=== PATIENT | male | born 1970 | race Caucasian/White ===

== ENCOUNTER → 2023-05-16 07:10 | Outpatient (REF) | payer MEDICARE, OTHER, SELFPAY ==
[2023-05-16 08:58] LABS: Hematocrit 49.7 % (39.0-52.0); Hemoglobin 17.2 g/dL (13.0-18.0); Mean Corp Hgb Conc. 34.6 g/dL (33.0-37.0); Mean Corpuscular Hgb 31.7 pg (27.0-31.0); Mean Corpuscular Volume 91.7 fL (80.0-94.0); Mean Platelet Volume 8.9 fL (7.4-10.4); Platelet Count 158 10^3/uL (130-400); Red Blood Cell Count 5.42 10^6/uL (4.70-6.10); Red Cell Dist. Width 12.5 % (11.5-14.5); White Blood Cell Count 8.3 10^3/uL (4.8-10.8)
[2023-05-16 09:11] LABS: Blood Urea Nitrogen 20 mg/dl (9-20); Calcium 9.2 mg/dl (8.4-10.2); Carbon Dioxide 30 mmol/L (22-30); Chloride 100 mmol/L (98-107); Glucose 96 mg/dl (70-99); Potassium 4.2 mmol/L (3.5-5.1); Sodium 140 mmol/L (135-145); eGFR > 60.00
[2023-05-16 09:18] LABS: NT-proBNP < 20.0 pg/ml
== END ==
LOC: SDSPAT 07:10
PROVIDERS: ATTENDING PHYSICIAN Specialist; FAMILY PHYSICIAN Family Medicine
DX: Z01.818 Encounter for other preprocedural examination (principal)
CPT/HCPCS: 36415; 80048; 83880; 85027; 87070; 93005

== ENCOUNTER 2023-05-19 08:49 | Emergency (ER) | payer MEDICARE, OTHER, SELFPAY ==
[2023-05-19 08:53] VITALS: BP 151/86
--- NOTE | 2023-05-19 09:19 | ED.GENMED ---
History of Present Illness
<Annie Barron PA-C - Last Filed: 05/19/23 13:29>
General
Chief Complaint: DVT/Possible Blood Clot
Source: patient
Exam Limitations: none
Time Seen by Provider: 05/19/23 08:58
Nursing documentation reviewed up to this point in time: agreed with
Travel History
Have you had any contact with someone who has COVID-19?: No
Do you have any symptoms of coronavirus? Fever > 100 degrees, chills, cough, shortness of breath, sore throat, loss of taste or smell, muscle aches, or headache?: No
History of Present Illness
History of Present Illness:
Patient is a 52 year old male presenting for evaluation of swelling and pain of right lower extremity. Symptoms started approximately 2 weeks ago and have been gradually worsening. He endorses swelling, pain, and redness in his right lower extremity
from the ankle into the groin. He also endorses increasing dyspnea on exertion over the past few weeks. He denies any chest pain or numbness of lower extremity. He denies any abdominal symptoms. He denies similar symptoms in left lower extremity.
Patient was seen by his PCP this morning to have stitches removed on his back when he mentioned the swelling in his right lower leg. He was referred her for US to r/o DVT. Patient had a procedure done on 05/08/23 to have the battery pack of his spinal
cord stimulator removed. Symptoms were present prior to this procedure.
He does have a history of RSD in b/l lower legs and right arm and experiences some degree of pain at baseline but this is more severe. He has a Dilaudid pump.
Patient had a stroke at age 20.
No personal or family history of known clotting disorders.
Past History
<Annie Barron PA-C - Last Filed: 05/19/23 13:29>
Past History
ED Past Medical History: Psychiatric (Anxiety, depression) and Other (RSD)
ED Past Surgical History: Appendectomy, Cholecystectomy and Other
Social History
Tobacco: Non-smoker
Alcohol: None
Drug: None
Personal:
Living: with family
Employment: Employed
Family History
Family History: Other (Noncontributory)
Phy Exam
<Annie Barron PA-C - Last Filed: 05/19/23 13:29>
Physical Exam
Physical Exam:
General: Well appearing and non-toxic, vital signs reviewed - patient afebrile
HEENT: Atraumatic, normocephalic; protecting airway
Neck: appears supple, no JVD
CV: Regular rate and rhythm, heart sounds normal, no evidence of cyanosis
Resp: No evidence of respiratory distress, lungs clear, no accessory muscle use
Abd: Non-distended
Extremities: Non-pitting edema of right lower extremity with erythema of calf and medial thigh with some red streaking on medial aspect of right leg, tenderness to palpation of right lower leg
Neuro: alert and oriented, speech normal, no focal motor or neurological deficits
Psych: Normal affect
Skin: Intact, brawny discoloration of b/l annkles
Course
<Annie Barron PA-C - Last Filed: 05/19/23 13:29>
Orders/Labs/Results
Orders:
Orders
05/19/23 09:32
US Periph Venous LOWER Ext RT Urgent
Comment:
Reason For Exam: atraumatic pain and swelling of RLE, r/o dvt
Vital Signs
Initial and Last Documented VS:
Initial Vital Signs
Temp Pulse Resp BP Pulse Ox
98.3 F 86 16 151/86 98
05/19/23 08:53 05/19/23 08:53 05/19/23 08:53 05/19/23 08:53 05/19/23 08:53
Last Documented Vital Signs
Temp Pulse Resp BP Pulse Ox
98.3 F 86 16 151/86 98
05/19/23 08:53 05/19/23 08:53 05/19/23 08:53 05/19/23 08:53 05/19/23 08:53
<Humberto Torres DO - Last Filed: 05/19/23 12:13>
Orders/Labs/Results
Orders:
Orders
05/19/23 09:32
US Periph Venous LOWER Ext RT Urgent
Comment:
Reason For Exam: atraumatic pain and swelling of RLE, r/o dvt
Vital Signs
Initial and Last Documented VS:
Initial Vital Signs
Temp Pulse Resp BP Pulse Ox
98.3 F 86 16 151/86 98
05/19/23 08:53 05/19/23 08:53 05/19/23 08:53 05/19/23 08:53 05/19/23 08:53
Last Documented Vital Signs
Temp Pulse Resp BP Pulse Ox
98.3 F 86 16 151/86 98
05/19/23 08:53 05/19/23 08:53 05/19/23 08:53 05/19/23 08:53 05/19/23 08:53
<Annie Barron PA-C - Last Filed: 05/19/23 13:29>
MDM/Problems Addressed
Differential Diagnosis Includes:
DVT, cellulitis, venous stasis, CHF, nephrotic syndrome
MDM/Problems Addressed:
Patient is 52 y.o male presenting for right lower extremity swelling and pain worsening over the past few weeks. Sent to ER by primary care to rule out a DVT. No chest pain. Some very mild shortness of breath. He denies any recent trauma to leg.
No fever or chills. He has no history of DVT but did have a stroke when he was 20. Patient's vital signs are stable on arrival. He is not tachycardic or hypoxic. He is afebrile. he does have some diffuse swelling of right lower extremity with
erythema of right calf and some streaking moving up right medial thigh. He is tender palpation of right lower leg. There is brawny discoloration of bilateral ankles suspicious for venous stasis process. Will get ultrasound of right lower leg to
rule out blood clot. Will reassess.
Ultrasound of right lower extremity is negative for evidence of DVT. Given swelling and redness noted on exam�will treat for probable cellulitis and underlying venous stasis. Patient is stable for discharge with return precautions and primary care
follow-up in 48 hours to ensure resolving. Will send course of Keflex for suspected cellulitis. Lengthy discussion with patient regarding return precautions. Patient is comfortable this plan. All questions answered.
Chronic conditions affecting care:
RSD, hx CVA, hypothyroid
Acute Exacerbation and/or Progression of Chronic Illness:
Cellulitis, venous stasis
<Annie Barron PA-C - Last Filed: 05/19/23 13:29>
*Radiology
Radiology exam reviewed: radiology read reviewed
*Pulse Oximetry
Patient hypoxic: no
*Locksmith Interpretation
Rate: Locksmith- N/A
*Critical Care Note
Total Time (30-74mins, 75-104mins- exclusive of procedures): Not Applicable
ED Attending Note
<Annie Barron PA-C - Last Filed: 05/19/23 13:29>
-
Portions of this chart may have been created with voice recognition software.� Occasional wrong word or��sound alike� substitutions may have occurred due to the inherent limitations of voice recognition software.
<Humberto Torres DO - Last Filed: 05/19/23 12:13>
ED Attending Note
Patient seen and examined by attending physician: Yes
I performed the substantive portion of visit, reviewed & personally made and approve the management plan that is documented in note by myself or MARGRET.: Yes
ED Attending Note:
Patient is a 52-year-old male Who presents to the emergency department from his family physician's office for concern of a possible DVT in his right leg. Patient has noticed pain and swelling. Patient denies history of previous DVT. Patient has
history of spinal cord stimulator. Patient denies fever or chills. On physical exam the patient's right lower extremity is diffusely edematous with an erythematous streak going distally proximally. Patient's right lower leg is bigger than his
left lower leg. There is brawny induration bilaterally. Patient's ultrasound is negative. Patient will be treated for cellulitis and probable venous stasis. Patient will be discharged.
Discharge Plan
Departure
Patient Disposition: Home (Routine Discharge)
Date of Disposition: 05/19/23
Time of Disposition: 10:42
Patient with high blood pressure during this ER visit?: Yes
Condition: Good
Covid-19: Not Applicable
Discharge Problem:
Cellulitis
Instructions: Cellulitis (Skin Infection), Adult (DC), BLOOD PRESSURE
Prescriptions:
New
cephalexin 500 mg capsule
500 mg PO TID 7 Days Qty: 21 0RF
No Action
levothyroxine 50 mcg tablet
50 mcg PO DAILY@0700
buspirone 10 mg tablet
10 mg PO BID
nicotine 21 mg/24 hr patch 24 hour
21 mg transdermal DAILY
trazodone 300 mg tablet
300 mg PO HS
testosterone cypionate 200 mg/mL oil
200 mg IM Q2W
paroxetine HCl 40 mg tablet
40 mg PO DAILY
oxycodone 5 mg tablet
5 mg PO Q8H
Dilaudid
2.1 ml SC Q24H
Rx Instructions:
dilaudid implantable pump: 2.1ml every 24 hr
Referrals:
Humberto Randolph DO [Family Provider] - Follow up in 2-3 days
Activity Restrictions/Additional Instructions:
-Return to the emergency department with any high fevers, chest pain, shortness of breath, intractable vomiting, worsening in redness or swelling, purulent drainage, severe pain in right leg, worsening in current symptoms, or any other concerns
-Your prescription has been sent to your pharmacy.
-Recommend elevating leg as often as possible.
-Follow-up with PCP for further evaluation/management. You should follow-up with PCP in 48 hours to ensure symptoms are improving.
Interventions
Interventions:
*Risk Screen - Suicide Last Done: 05/19/23 09:23
*General Assessment Last Done: 05/19/23 09:23
*Neglect/Abuse Screening Last Done: 05/19/23 09:23
*ED COVID-19 Vaccine History Last Done: 05/19/23 08:53
*Nursing Disposition Last Done: 05/19/23 10:55
ED- Cardiac Assessment Last Done: 05/19/23 09:23
ED- Pulmonary Assessment Last Done: 05/19/23 09:23
ED-Peripheral Vascular Assessment Last Done: 05/19/23 09:23
ED-Skin Assessment Last Done: 05/19/23 09:23
Discharge Date and Time
Discharge Date/Time: 05/19/23 10:56
[2023-05-19 09:22] VITALS: BMI 41.2
== END 2023-05-19 10:56 | disposition home or self-care (01) ==
LOC: EMR 08:49
PROVIDERS: EMERGENCY PHYSICIAN Emergency Medicine; FAMILY PHYSICIAN Family Medicine
DX: L03.115 Cellulitis of right lower limb (principal); G90.523 Complex regional pain syndrome I of lower limb, bilateral; E03.9 Hypothyroidism, unspecified; R03.0 Elevated blood-pressure reading, without diagnosis of hypertension; Z86.73 Personal history of transient ischemic attack (TIA), and cerebral infarction without residual deficits
CPT/HCPCS: 99284; 93971

== ENCOUNTER 2023-05-26 17:38 | Inpatient (IN) | payer MEDICARE, OTHER, SELFPAY ==
[2023-05-26 11:18] VITALS: BP 157/96
[2023-05-26 11:42] LABS: % Eosinophils 1.9 % (0-6); % Immature Granulocytes 0.7 % (0-0.5); % Lymphocytes 13.2 % (20.5-51.1); % Monocytes 9.5 % (1.7-9.3); % Neutrophils 73.7 % (42.2-75.2); Absolute Basophils 0.1 10^3/uL (0-0.2); Absolute Eosinophils 0.1 10^3/uL (0-0.7); Absolute Immature Granulocytes 0.1 10^3/uL (0-0.05); Absolute Lymphocytes 0.9 10^3/uL (1.2-3.4); Absolute Monocytes 0.7 10^3/uL (0.1-0.6); Hematocrit 49.1 % (39.0-52.0); Hemoglobin 17.6 g/dL (13.0-18.0); Mean Corp Hgb Conc. 35.8 g/dL (33.0-37.0); Mean Corpuscular Hgb 32.2 pg (27.0-31.0); Mean Corpuscular Volume 89.9 fL (80.0-94.0); Mean Platelet Volume 8.7 fL (7.4-10.4); Nucleated Red Blood Cells % 0 % (-); Platelet Count 152 10^3/uL (130-400); Red Blood Cell Count 5.46 10^6/uL (4.70-6.10); Red Cell Dist. Width 12.7 % (11.5-14.5); White Blood Cell Count 6.8 10^3/uL (4.8-10.8)
[2023-05-26 12:01] LABS: ALT (SGPT) 28 U/L (0-50); AST (SGOT) 35 U/L (17-59); Albumin 4.2 g/dl (3.5-5.0); Alkaline Phosphatase 66 U/L (38-126); Blood Urea Nitrogen 11 mg/dl (9-20); Calcium 9.3 mg/dl (8.4-10.2); Carbon Dioxide 32 mmol/L (22-30); Chloride 99 mmol/L (98-107); Glucose 107 mg/dl (70-99); Potassium 4.1 mmol/L (3.5-5.1); Sodium 137 mmol/L (135-145); Total Bilirubin 0.5 mg/dl (0.2-1.3); Total Protein 6.7 g/dl (6.3-8.2); eGFR > 60.00
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
[2023-05-26 15:21] VITALS: BP 150/91
[2023-05-26] MEDS: VANCOCIN 540 MG IV (16:49)
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
[2023-05-26 17:00] VITALS: BP 179/73
--- NOTE | 2023-05-26 17:02 | W.PN.UPDATE ---
Update Note
Progress Note Update
Rash reported to Right flank left arm during Iv VANCO administration
-Stop IV vancomycin
-IV Benadryl 25 mg now
[2023-05-26] MEDS: KLONOPIN 1 MG PO (17:05)
[2023-05-26] MEDS: NICODERM TRANSDERMAL 14 MG TRANSDERM (17:05)
[2023-05-26] MEDS: BENADRYL 25 MG IV (17:05)
[2023-05-26 17:56] VITALS: BP 129/78; BMI 39.4
[2023-05-26] MEDS: ANCEF 5 IV (18:16)
--- NOTE | 2023-05-26 18:16 | PTCARENOTE ---
pt arrived to unit at 1750 via stretcher form ED> pt ambulated from hallway to bed with standby assist and single point cane. Pt AAOx3 but drowsy, falling asleep mid conversation. Assessment completed by this nurse. VSS
[2023-05-26] MEDS: LOVENOX 40 MG SC (19:52)
[2023-05-26] MEDS: BUSPAR 10 MG PO (19:53)
[2023-05-26] MEDS: PUMP 10 EACH SC (20:21)
[2023-05-26] MEDS: DESYREL 300 MG PO (21:00)
[2023-05-26] MEDS: ROXICODONE 5 MG PO (21:00)
[2023-05-26 23:52] VITALS: BP 157/61
[2023-05-27] MEDS: ANCEF 5 IV ×2 (01:00→09:50)
[2023-05-27] MEDS: SYNTHROID 50 MCG PO (05:44)
[2023-05-27 06:32] LABS: Blood Urea Nitrogen 15 mg/dl (9-20); Calcium 8.7 mg/dl (8.4-10.2); Carbon Dioxide 29 mmol/L (22-30); Chloride 100 mmol/L (98-107); Estimated Creatinine Clearance > 125 ml/min; Glucose 91 mg/dl (70-99); Potassium 3.8 mmol/L (3.5-5.1); Sodium 136 mmol/L (135-145); eGFR > 60.00
[2023-05-27 06:48] LABS: % Basophils 0.7 % (0-2); % Eosinophils 1.8 % (0-6); % Immature Granulocytes 0.7 % (0-0.5); % Lymphocytes 17.4 % (20.5-51.1); % Monocytes 9.7 % (1.7-9.3); % Neutrophils 69.7 % (42.2-75.2); Absolute Basophils 0.1 10^3/uL (0-0.2); Absolute Eosinophils 0.2 10^3/uL (0-0.7); Absolute Immature Granulocytes 0.1 10^3/uL (0-0.05); Absolute Lymphocytes 1.8 10^3/uL (1.2-3.4); Absolute Neutrophils 7.1 10^3/uL (1.4-6.5); Hemoglobin 18.2 g/dL (13.0-18.0); Mean Corp Hgb Conc. 35.7 g/dL (33.0-37.0); Mean Corpuscular Hgb 32.3 pg (27.0-31.0); Mean Corpuscular Volume 90.4 fL (80.0-94.0); Mean Platelet Volume 8.8 fL (7.4-10.4); Nucleated Red Blood Cells % 0 % (-); Platelet Count 151 10^3/uL (130-400); Red Blood Cell Count 5.64 10^6/uL (4.70-6.10); Red Cell Dist. Width 12.6 % (11.5-14.5); White Blood Cell Count 10.2 10^3/uL (4.8-10.8)
[2023-05-27 07:37] VITALS: BP 169/83
[2023-05-27] MEDS: VITAMIN D3 (cholecalciferol) 125 MCG PO (09:10)
[2023-05-27] MEDS: BUSPAR 10 MG PO ×2 (09:11→19:44)
[2023-05-27] MEDS: NICODERM TRANSDERMAL 14 MG TRANSDERM (09:11)
[2023-05-27] MEDS: PAXIL 40 MG PO (09:11)
[2023-05-27] MEDS: ROXICODONE 5 MG PO ×2 (09:23→15:39)
--- NOTE | 2023-05-27 10:29 | W.PN.HOSP.TC ---
Today's Communication/Plan
-
see A/P
Assessment / Plan
Assessment / Plan
52-year-old male, past medical history of hypothyroidism, anxiety, PTSD, Reflex Sympathetic Dystrophy, chronic pain syndrome with Dilaudid pump with chronic left hand contracture; p/w increasing right leg pain and swelling.� He was diagnosed with
right lower extremity cellulitis outpatient and had been on Keflex and Bactrim without significant improvement.
A/P:
# Right lower extremity pain/ swelling, admitted for cellulitis work up
Clinically does not appear grossly cellulitic although CT LE suggest Moderate diffuse cellulitis throughout the right lower leg.
WBC 6.8, afebrile
Recent ultrasound 6 days [facility] negative for DVT
s/p Keflex 1 week outpt followed by Bactrim DS twice daily x 4 days outpt
Cont Ancef, IV Vanc discontinued due to rash
Consult ID
# Recent nicotine cessation
Continue patient 14 mg nicotine transdermal patch
Prior 2 to 3 pack/day quit 37 days ago
# RSD bilateral lower extremities since 2005
# Chronic pain with chronic opiate dependence
# Medical marijuana use
Cont�Dilaudid pump 10 mg per 24-hour/baclofen 560 mg
Cont oxycodone 5 mg every 6 hours as needed severe pain
# Anxiety
# PTSD
Continue BuSpar 10 mg twice daily, Paxil 40 mg daily
Continue Klonopin 1 mg daily as needed anxiety
# Hypothyroidism
Continue levothyroxine 50 mcg daily
# Insomnia
Trazodone 300 mg at bedtime
# Obesity due to excess calorie consumption
BMI 42
Weight loss recommended, healthy heart diet
DVT prophylaxis: Subcu Lovenox
Full code
Anticipated Discharge: Within 24 hours
Subjective/Interval History
-
Date of Service: May 27, 2023
Objective Data
-
Labs:
Laboratory Results
05/27/23
05:47
WBC 10.2
Hgb 18.2 H
Hct 51.0
Plt Count 151
Sodium 136
Potassium 3.8
Chloride 100
Carbon Dioxide 29
BUN 15
Creatinine 0.8
Glucose 91
Calcium 8.7
Vital Signs:
Vital Signs
Temp Pulse Resp BP Pulse Ox
36.8 C 69 18 169/83 98
05/27/23 07:37 05/27/23 07:37 05/27/23 07:37 05/27/23 07:37 05/27/23 07:37
I&O
05/26/23 05/27/23 05/28/23
06:59 06:59 06:59
Intake Total 480 / 480
Balance 480 / 480
Review of Systems
-
All other systems: Reviewed and negative
Musculoskeletal: Reports Muscle Pain (RLE pain has improved)
Physical Exam
-
General: Well Developed, Well Nourished, No Apparent Distress, Comfortable and Conversant; Negative Respiratory Distress
HEENT: Normocephalic, Atraumatic, Nose Appears Normal and Ears Appear Normal; Negative Oxygen
Respiratory: Clear to Auscultation and Non Labored Respirations; Negative Accessory Resp Muscle Use
Cardiac: Regular Rhythm and S1/S2
GI: Soft, Nontender, Nondistended and Normal Bowel Sounds
Musculoskeletal: Edema, Right Lower Extrem and Edema, Left Lower Extrem
Skin: Warm and Dry
Neuro: Awake, Alert, Oriented, AO x 3 and Nonfocal/Grossly Intact
Psych: Calm and Intact Judgement/Insight
Data Reviewed
-
CT Scan: Report Reviewed by me
Labs: Labs Reviewed by me
[2023-05-27] MEDS: KLONOPIN 1 MG PO (10:37)
[2023-05-27 12:23] VITALS: BP 166/87; PULSE 83; O2SAT 98
[2023-05-27 12:35] VITALS: BP 166/87; PULSE 83; O2SAT 98
--- NOTE | 2023-05-27 12:47 | PTOTSP ---
PATIENT ABLE TO MOBILIZE INDEPENDENTLY ON LEVEL SURFACES WITH CANE. PATIENT WITH PAIN BILATERAL LES RATED 2/10. PATIENT APPEARS TO BE FUNCTIONING AT ITS BASELINE. PATIENT REQUIRING NO FURTHER ACUTE CARE SKILLED P.T. AT THIS TIME.
[2023-05-27 15:00] VITALS: BP 148/117
[2023-05-27] MEDS: ANCEF 10 IV ×2 (15:56→21:08)
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
[2023-05-27] MEDS: KLONOPIN 0.25 MG PO ×2 (17:10→21:10)
[2023-05-27] MEDS: LOVENOX 40 MG SC (17:11)
[2023-05-27 17:29] VITALS: BP 162/85
[2023-05-27] MEDS: PUMP 10 EACH SC (19:14)
[2023-05-27] MEDS: DESYREL 300 MG PO (21:09)
[2023-05-27 23:09] VITALS: BP 118/62
[2023-05-28] MEDS: ANCEF 10 IV ×2 (04:00→10:00)
--- NOTE | 2023-05-28 04:10 | DOWNTIME ---
There was a [employer] Technical Support Specialist Downtime on 05/28/2023 from 0111 to 05/28/2023 at 0405. Downtime documentation of patient's care, including medication administrations, has been reconciled in the electronic record per guidelines. Refer to the
patient's paper chart under the miscellaneous tab to see printed paper medication records and downtime forms.
[2023-05-28] MEDS: SYNTHROID 50 MCG PO (05:56)
[2023-05-28] MEDS: PAXIL 40 MG PO (07:56)
[2023-05-28] MEDS: NICODERM TRANSDERMAL 14 MG TRANSDERM (07:57)
[2023-05-28] MEDS: VITAMIN D3 (cholecalciferol) 125 MCG PO (07:58)
[2023-05-28] MEDS: BUSPAR 10 MG PO (07:58)
[2023-05-28] MEDS: ROXICODONE 5 MG PO (08:07)
[2023-05-28] MEDS: KLONOPIN 0.25 MG PO (08:47)
[2023-05-28 09:11] VITALS: BP 158/82
[2023-05-28] MEDS: FLUSH (NSS) 2 FLUSH IV (10:01)
--- NOTE | 2023-05-28 10:29 | W.PN.HOSP.TC ---
Addendum entered and electronically signed by Hanny Montenegro MD 05/28/23 12:42:
Total DC time 35 minutes
Original Note:
Today's Communication/Plan
-
DC home today
Assessment / Plan
Assessment / Plan
52-year-old male, past medical history of hypothyroidism, anxiety, PTSD, Reflex Sympathetic Dystrophy, chronic pain syndrome with Dilaudid pump with chronic left hand contracture; p/w increasing right leg pain and swelling.� He was diagnosed with
right lower extremity cellulitis outpatient and had been on Keflex and Bactrim without significant improvement.
A/P:
# Right lower extremity pain/ swelling, admitted for cellulitis work up
Clinically does not appear grossly cellulitic although CT LE suggest Moderate diffuse cellulitis throughout the right lower leg.
WBC 6.8, afebrile
Recent ultrasound 6 days [employer] negative for DVT
s/p Keflex 1 week outpt followed by Bactrim DS twice daily x 4 days outpt
Ancef -> PO keflex 1000 mg PO QID for 5 more days
Appreciate ID input
# Recent nicotine cessation
Prior 2 to 3 pack/day quit 37 days ago
Continue nicotine patch 14 mg, will send refill per pt request
# RSD bilateral lower extremities since 2005
# Chronic pain with chronic opiate dependence
# Medical marijuana use
Cont�Dilaudid pump 10 mg per 24-hour/baclofen 560 mg
Cont oxycodone 5 mg every 6 hours as needed severe pain
# Anxiety
# PTSD
Continue BuSpar 10 mg twice daily, Paxil 40 mg daily
Continue Klonopin 1 mg daily as needed anxiety
# Hypothyroidism
Continue levothyroxine 50 mcg daily
# Insomnia
Trazodone 300 mg at bedtime
# Obesity due to excess calorie consumption
BMI 42
Weight loss recommended, healthy heart diet
DVT prophylaxis: Subcu Lovenox
Full code
Anticipated Discharge: Today
Subjective/Interval History
-
Date of Service: May 28, 2023
Objective Data
-
Vital Signs:
Vital Signs
Temp Pulse Resp BP Pulse Ox
36.6 C 79 14 158/82 97
05/27/23 23:09 05/27/23 23:09 05/27/23 23:09 05/28/23 09:11 05/27/23 23:09
I&O
05/27/23 05/28/23 05/29/23
06:59 06:59 06:59
Intake Total 480 / 480 1620 / 1620
Balance 480 / 480 1620 / 1620
Review of Systems
-
All other systems: Reviewed and negative
Musculoskeletal: Reports Muscle Pain (RLE pain has improved)
Physical Exam
-
General: Well Developed, Well Nourished, No Apparent Distress, Comfortable and Conversant; Negative Respiratory Distress
HEENT: Normocephalic, Atraumatic, Nose Appears Normal and Ears Appear Normal; Negative Oxygen
Respiratory: Clear to Auscultation and Non Labored Respirations; Negative Accessory Resp Muscle Use
Cardiac: Regular Rhythm and S1/S2
GI: Soft, Nontender, Nondistended and Normal Bowel Sounds
Musculoskeletal: Edema, Right Lower Extrem and Edema, Left Lower Extrem
Skin: Warm and Dry
Neuro: Awake, Alert, Oriented, AO x 3 and Nonfocal/Grossly Intact
Psych: Calm and Intact Judgement/Insight
Data Reviewed
-
CT Scan: Report Reviewed by me
Labs: Labs Reviewed by me
--- NOTE | 2023-05-28 12:33 | W.DCSUMMARY ---
Discharge Summary
Discharge Data
Date of Admission: 05/26/23
Date of Discharge: 05/28/23
-
Pending Results: No
Hospital Course
Principal Diagnosis:
Right lower extremity cellulitis
Chronic Diagnoses:�
Recent smoking cessation, currently on nicotine patch
Complex regional pain syndrome bilateral lower extremities since 2005
Chronic pain with chronic opiate dependence on Dilaudid pump
Medical marijuana use
Anxiety
Posttraumatic stress disorder
Hypothyroidism on levothyroxine
Insomnia
Obesity due to excess calorie consumption, BMI 42
Consultations:�
Infectious disease
Procedures:�
None
Clinical course:�
This is a 52-year-old male with past medical history as stated above, who presented with increasing right leg pain and swelling.�He was diagnosed with right lower extremity cellulitis outpatient and had been on Keflex and Bactrim without significant
improvement.
Problem 1:
Right lower extremity cellulitis.
His CT LE suggest Moderate diffuse cellulitis throughout the right lower leg.
His recent ultrasound 6 days ago prior to admission was negative for deep vein thrombosis.
He received IV Ancef while in the hospital, and was discharged with oral Keflex 1000 mg PO QID (higher dose due to BMI) for 5 more days per ID recommendation.
As for the rest of his medical problems, they were stable during his hospital stay.
Discharge Plan
-
Patient Disposition: Home (Routine Discharge)
Discharge Diagnosis/Procedures: Right lower extremity cellulitis
Condition: Fair
Diet: As tolerated, Low Fat, Low Cholesterol and Low Sodium
Activity: As tolerated
Driving Restrictions: As prior to admission
Activity Restrictions/Additional Instructions:
Continue to take Keflex 1000 mg every 6 hours for 5 more day.
Referrals:
Humberto Randolph DO [Family Provider] - in less than 1 week
Prescriptions:
New
cephalexin 500 mg capsule
1,000 mg PO Q4H 5 Days Qty: 60 0RF
nicotine 14 mg/24 hr patch 24 hour
1 patch transdermal DAILY Qty: 28 0RF
Continued
clonazepam [Klonopin] 1 mg Tablet
1 mg PO DAILY PRN (Reason: anxiety)
Patient Comments:
05/26/2023, pt. filled this med. on 05/15/2023 for 30 tablets according to PDMP.
levothyroxine 50 mcg tablet
50 mcg PO DAILY AT 0700
buspirone 10 mg tablet
10 mg PO BID
trazodone 300 mg tablet
300 mg PO HS
testosterone cypionate 200 mg/mL oil
200 mg IM Q2W
Patient Comments:
05/26/2023, pt. filled this med. on 05/19/2023 for a quantity of 4 according to PDMP.
paroxetine HCl 40 mg tablet
40 mg PO DAILY
oxycodone 5 mg tablet
5 mg PO Q6HPRN PRN (Reason: severe pain)
Patient Comments:
05/26/2023, pt. filled this med. on 05/19/2023 for 120 tablets according to PDMP.
Dilaudid powder
2.1 ml SC Q24H
Patient Comments:
05/26/2023, pt. has a dilaudid implantable pump: 2.1ml every 24 hr. Pt. filled this med. on 04/28/2023 for a quantity of 0.2 according to PDMP.
cholecalciferol (vitamin D3) 125 mcg (5,000 unit) Tablet
125 mcg PO DAILY
Medical Marijuana
0 puff inhalation .SEE BELOW PRN (Reason: mild pain)
Patient Comments:
05/26/2023, pt. smokes the flower form; pt. smokes medical marijuana throughout the day as needed for pain and takes roughly '5 puffs' per use.
Discontinued
nicotine 21 mg/24 hr patch 24 hour
21 mg transdermal DAILY
Patient Comments:
05/26/2023, pt. took patch off this morning and is currently not wearing one.
sulfamethoxazole-trimethoprim 800-160 mg Tablet
1 tab PO BID
Patient Comments:
05/26/2023, pt. filled this med. on 05/22/2023 and is instructed to take one tablet BID for 10 days.
cephalexin 500 mg Capsule
500 mg PO TID
Patient Comments:
05/26/2023, pt. filled this med. on 05/19/2023 and is instructed to take one capsule TID for 7 days. Pt. took last dose of this med. this morning.
Discharge Orders:
Discharge Patient (As Directed); Ordered 05/28/23
Ordered By: Hanny Montenegro
Discharge Date and Time
Discharge Date/Time: 05/28/23 11:40
== END 2023-05-28 11:40 | disposition home or self-care (01) | DRG 603 ==
LOC: 3 WEST ACU 17:38
PROVIDERS: Clinical Nurse Specialist Family Health; Emergency Medicine; ADMITTING PHYSICIAN Internal Medicine; CONSULT PHYSICIAN Student in an Organized Health Care Education/Training Program; EMERGENCY PHYSICIAN Emergency Medicine; FAMILY PHYSICIAN Family Medicine
DX: L03.115 Cellulitis of right lower limb (principal); F11.20 Opioid dependence, uncomplicated; Z68.41 Body mass index [BMI] 40.0-44.9, adult; G90.523 Complex regional pain syndrome I of lower limb, bilateral; E03.9 Hypothyroidism, unspecified; F43.10 Post-traumatic stress disorder, unspecified; G89.4 Chronic pain syndrome; E66.09 Other obesity due to excess calories; Z87.891 Personal history of nicotine dependence
CPT/HCPCS: 73701; 80048; 80053; 85025; 87040; 87070; 96365; 97161; 97166; 99285; Q9967

== ENCOUNTER 2023-05-30 05:54 | Day surgery (SDC) | payer MEDICARE, OTHER, SELFPAY ==
[2023-05-16 08:04] VITALS: BMI 42.0
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
[2023-05-30] VITALS (13 sets, daily range): BP systolic 96–146; BP diastolic 57–95; BMI 42.0
[2023-05-30] MEDS: TYLENOL 1000 MG PO (06:35)
[2023-05-30] MEDS: NORMOSOL-R 1000 IV (06:35)
[2023-05-30] MEDS: CELEBREX 200 MG PO (06:35)
[2023-05-30] MEDS: ROXICODONE 5 MG PO (10:16)
== END 2023-05-30 10:35 | disposition home or self-care (01) ==
LOC: SDS 05:54
PROVIDERS: ATTENDING PHYSICIAN Specialist; FAMILY PHYSICIAN Family Medicine
DX: S83.232A Complex tear of medial meniscus, current injury, left knee, initial encounter (principal); X58.XXXA Exposure to other specified factors, initial encounter; M65.9 Synovitis and tenosynovitis, unspecified
CPT/HCPCS: 29881; 87070

== ENCOUNTER 2023-06-06 22:03 | Emergency (ER) | payer MEDICARE, OTHER, SELFPAY ==
[2023-06-06 22:15] VITALS: BP 161/81
[2023-06-06 22:37] LABS: % Basophils 0.8 % (0-2); % Eosinophils 2.4 % (0-6); % Immature Granulocytes 0.8 % (0-0.5); % Lymphocytes 21.3 % (20.5-51.1); % Neutrophils 65.7 % (42.2-75.2); Absolute Basophils 0.1 10^3/uL (0-0.2); Absolute Eosinophils 0.2 10^3/uL (0-0.7); Absolute Immature Granulocytes 0.1 10^3/uL (0-0.05); Absolute Lymphocytes 1.8 10^3/uL (1.2-3.4); Absolute Monocytes 0.8 10^3/uL (0.1-0.6); Absolute Neutrophils 5.5 10^3/uL (1.4-6.5); Hematocrit 46.8 % (39.0-52.0); Hemoglobin 16.6 g/dL (13.0-18.0); Mean Corp Hgb Conc. 35.5 g/dL (33.0-37.0); Mean Corpuscular Hgb 32.1 pg (27.0-31.0); Mean Corpuscular Volume 90.5 fL (80.0-94.0); Mean Platelet Volume 8.5 fL (7.4-10.4); Nucleated Red Blood Cells % 0 % (-); Platelet Count 167 10^3/uL (130-400); Red Blood Cell Count 5.17 10^6/uL (4.70-6.10); Red Cell Dist. Width 12.6 % (11.5-14.5); White Blood Cell Count 8.4 10^3/uL (4.8-10.8)
[2023-06-06 23:01] LABS: ALT (SGPT) 23 U/L (0-50); AST (SGOT) 34 U/L (17-59); Albumin 4.3 g/dl (3.5-5.0); Alkaline Phosphatase 62 U/L (38-126); Blood Urea Nitrogen 18 mg/dl (9-20); Calcium 9.3 mg/dl (8.4-10.2); Carbon Dioxide 31 mmol/L (22-30); Chloride 98 mmol/L (98-107); Glucose 90 mg/dl (70-99); Sodium 137 mmol/L (135-145); Total Bilirubin 0.7 mg/dl (0.2-1.3); Total Protein 7.2 g/dl (6.3-8.2); eGFR > 60.00
[2023-06-06 23:11] LABS: Lactic Acid 0.8 mmol/L (0.7-2.0)
--- NOTE | 2023-06-07 00:25 | ED.GENMED ---
History of Present Illness
General
Chief Complaint: Extremity Pain (non-traumatic)
Source: patient
Exam Limitations: none
Time Seen by Provider: 06/07/23 00:20
Travel History
Have you had any contact with someone who has COVID-19?: No
Do you have any symptoms of coronavirus? Fever > 100 degrees, chills, cough, shortness of breath, sore throat, loss of taste or smell, muscle aches, or headache?: No
History of Present Illness
History of Present Illness:
See MDM
Past History
Past History
ED Past Medical History: Psychiatric (Anxiety, depression) and Other (RSD)
ED Past Surgical History: Appendectomy, Cholecystectomy, Orthopedic and Other
Social History
Tobacco: Non-smoker
Alcohol: None
Drug: None
Personal:
Living: with family
Employment: Employed
Family History
Family History: Other (Noncontributory)
Phy Exam
Physical Exam
Physical Exam:
See MDM
Course
Orders/Labs/Results
Orders:
Orders
06/06/23 22:26
Complete Blood Count/With Diff Urgent
Comprehensive Metabolic Panel Urgent
Lactic Acid Q4H
Comment: ON ICE, CANCEL 2ND ORDER IF FIRST LACTIC ACID LEVEL <2
Blood Culture Q30M
LILI Source: Blood/Venous
Specimen Description:
Comment: FROM 2 SEPARATE SITES
06/06/23 22:30
Blood Culture Q30M
LILI Source: Blood/Venous
Specimen Description:
Comment: FROM 2 SEPARATE SITES
06/07/23 00:24
Furosemide [Lasix] 40 mg PO NOW STA
US Perip Venous LOWER Ext Trell Urgent
Comment:
Reason For Exam: b/l leg swelling
06/07/23 00:44
NT-proBNP Urgent
Troponin I Urgent
06/07/23 02:30
Lactic Acid Q4H
Comment: ON ICE, CANCEL 2ND ORDER IF FIRST LACTIC ACID LEVEL <2
Abnormal Lab Results
06/06/23
22:26
MCH 32.1 H pg
(27.0-31.0)
Abs Immat Gran (auto) 0.1 H 10^3/uL
(0-0.05)
Absolute Monos (auto) 0.8 H 10^3/uL
(0.1-0.6)
Immature Gran % 0.8 H %
(0-0.5)
Carbon Dioxide 31 H mmol/L
(22-30)
06/06/23 22:26
06/06/23 22:26
Vital Signs
Initial and Last Documented VS:
Initial Vital Signs
Temp Pulse Resp BP Pulse Ox
99.1 F 88 18 161/81 96
06/06/23 22:15 06/06/23 22:15 06/06/23 22:15 06/06/23 22:15 06/06/23 22:15
Last Documented Vital Signs
Temp Pulse Resp BP Pulse Ox
99.1 F 63 18 127/81 96
06/06/23 22:15 06/07/23 00:45 06/06/23 22:15 06/07/23 00:45 06/06/23 22:15
MDM/Problems Addressed
Differential Diagnosis Includes:
HPI and MDM Narrative:
52-year-old male presenting for evaluation of bilateral leg swelling. Patient is concerned because his right leg is starting to hurt. This is similar symptoms to a recent admission for cellulitis. Patient recently had left knee arthroscopy with
meniscectomy. I discussed with patient that his right leg is likely hurting due to favoring of that leg. I noticed no cellulitis on exam. However, patient has evidence of bilateral leg pitting edema from knee down. He denies prior history of
congestive heart failure. Will give dose of Lasix and obtain ultrasound to rule out DVT
Physical exam
General: Well appearing and non-toxic
HEENT: protecting airway
Neck: appears supple
CV: No evidence of cyanosis
Resp: No accessory muscle use
Abd: Non-distended
Extremities: +2 pitting edema bilateral lower extremities. No cellulitis to lower extremity noted. Left knee incisions are clean and intact. Distal Pulses intact in both legs
Neuro: alert
Psych: Normal affect
Skin: Intact
Problems Addressed including Acute and Chronic Conditions affecting care:
1. Leg edema
Acuity: acute
Prognosis: stable
Details: Will start Lasix and rule out DVT with ultrasound. No clinical signs of cellulitis
Updates
Ultrasound negative for DVT. Discussed Lasix and follow-up with PCP
Differential Diagnosis (but not limited to): DVT, dependent edema, CHF
Testing considered: Chest x-ray but denies shortness of breath
Drug therapy (if applicable): OTC meds, please see d/c instruction regarding Rx drugs
Amount and/or Complexity of Data Reviewed
Clinical info obtained from: Patient
External data reviewed: N/A
Labs I independently reviewed (but not limited to): White blood cell count normal
Radiology: Director Of Manufacturing indicating negative DVT bilaterally
Pulse Ox: not hypoxic
EKG independently reviewed: N/A
Chemical Unit Operator: N/A
Critical Care: N/A
Risk of Complication:
Social Determinants of health: Good social support
Discussed with other providers: N/A
Escalation of Care includes Admit/Obs: After being observed in the Emergency Department, pt stable for discharge.
Occasional wrong word or 'sound a like' substitutions may have occurred due to the inherent limitations of voice recognition software. Read the chart carefully and recognize, using context, where substitutions have occurred.
*Critical Care Note
Total Time (30-74mins, 75-104mins- exclusive of procedures): Not Applicable
ED Attending Note
-
Portions of this chart may have been created with voice recognition software.� Occasional wrong word or��sound alike� substitutions may have occurred due to the inherent limitations of voice recognition software.
Discharge Plan
Departure
Patient Disposition: Home (Routine Discharge)
Date of Disposition: 06/07/23
Time of Disposition: 01:39
Patient with high blood pressure during this ER visit?: No
Discharge Problem:
Leg edema
Instructions: Dependent Edema (DC)
Prescriptions:
New
furosemide [Lasix] 20 mg tablet
20 mg PO DAILY Qty: 5 0RF
No Action
clonazepam [Klonopin] 1 mg Tablet
1 mg PO DAILY PRN (Reason: anxiety)
Patient Comments:
05/26/2023, pt. filled this med. on 05/15/2023 for 30 tablets according to PDMP.
Medical Marijuana
1 unit inhalation PRN PRN (Reason: anxiety)
levothyroxine 50 mcg tablet
50 mcg PO DAILY AT 0700
buspirone 10 mg tablet
10 mg PO BID
trazodone 300 mg tablet
300 mg PO HS
testosterone cypionate 200 mg/mL oil
200 mg IM Q2W
Patient Comments:
05/26/2023, pt. filled this med. on 05/19/2023 for a quantity of 4 according to PDMP.
paroxetine HCl 40 mg tablet
40 mg PO DAILY
oxycodone 5 mg tablet
5 mg PO Q6HPRN PRN (Reason: severe pain)
Patient Comments:
05/26/2023, pt. filled this med. on 05/19/2023 for 120 tablets according to PDMP.
Dilaudid powder
2.1 ml SC Q24H
Patient Comments:
05/26/2023, pt. has a dilaudid implantable pump: 2.1ml every 24 hr. Pt. filled this med. on 04/28/2023 for a quantity of 0.2 according to PDMP.
cholecalciferol (vitamin D3) 125 mcg (5,000 unit) Tablet
125 mcg PO DAILY
cephalexin 500 mg capsule
1,000 mg PO Q4H 5 Days Qty: 60 0RF
nicotine 14 mg/24 hr patch 24 hour
1 patch transdermal DAILY Qty: 28 0RF
Referrals:
Humberto Randolph DO [Family Provider] -
Activity Restrictions/Additional Instructions:
Please return for any worsening symptoms.
You may return at any time if you have further concerns.
Please follow up with your doctor at the first available appointment, preferably this week.
Thank you for choosing [facility].
[2023-06-07] MEDS: LASIX 40 MG PO (00:45)
[2023-06-07 01:20] LABS: NT-proBNP 20.8 pg/ml; Troponin I < 0.012 ng/ml
== END 2023-06-07 02:33 | disposition home or self-care (01) ==
LOC: EMR 22:03
PROVIDERS: EMERGENCY PHYSICIAN Student in an Organized Health Care Education/Training Program; FAMILY PHYSICIAN Family Medicine
DX: R22.43 Localized swelling, mass and lump, lower limb, bilateral (principal); M79.89 Other specified soft tissue disorders
CPT/HCPCS: 99284; 80053; 83605; 83880; 84484; 85025; 87040; 93970

== ENCOUNTER → 2023-07-07 08:00 | Outpatient (REF) | payer MEDICARE, OTHER, SELFPAY | LOC: HWRCS 08:00 | PROVIDERS: ATTENDING PHYSICIAN Family Medicine | DX: M79.89 Other specified soft tissue disorders (principal) | CPT/HCPCS: 93306 ==

== ENCOUNTER → 2023-07-11 12:03 | Outpatient (REF) | payer MEDICARE, OTHER, SELFPAY | LOC: HWRAD 12:03 | PROVIDERS: ATTENDING PHYSICIAN Family Medicine | DX: M79.89 Other specified soft tissue disorders (principal) | CPT/HCPCS: 74177; Q9967 ==

== ENCOUNTER 2023-08-01 02:39 | Emergency (ER) | payer MEDICARE, OTHER, SELFPAY ==
[2023-08-01 02:45] VITALS: BP 129/93
--- NOTE | 2023-08-01 03:20 | ED.GENMED ---
History of Present Illness
General
Chief Complaint: Breathing Problem
Source: patient
Exam Limitations: none
Time Seen by Provider: 08/01/23 02:52
Travel History
Have you had any contact with someone who has COVID-19?: No
Do you have any symptoms of coronavirus? Fever > 100 degrees, chills, cough, shortness of breath, sore throat, loss of taste or smell, muscle aches, or headache?: No
History of Present Illness
History of Present Illness:
See MDM
Past History
Past History
ED Past Medical History: Psychiatric (Anxiety, depression) and Other (RSD)
ED Past Surgical History: Appendectomy, Cholecystectomy, Orthopedic and Other
Social History
Tobacco: Non-smoker
Alcohol: None
Drug: None
Personal:
Living: with family
Employment: Employed
Family History
Family History: Other (Noncontributory)
Phy Exam
Physical Exam
Physical Exam:
See MDM
Scores
Heart Failure Risk
Heart Failure Risk Score: Not Applicable
Course
Orders/Labs/Results
Orders:
Orders
08/01/23 03:17
CR Chest - 2 Views Urgent
Comment:
Reason For Exam: SOB
Knee, Right 4 or More Views [CR Knee- Right 4 Or More View*] Urgent
Comment:
Reason For Exam: medial knee pain after fall
08/01/23 03:18
Electrocardiogram (*1) Urgent
Reason for Study: Shortness of Breath
EKG- Treatment ONCE
08/01/23 04:00
Complete Blood Count/With Diff Urgent
Comprehensive Metabolic Panel Urgent
NT-proBNP Urgent
Troponin I Urgent
Abnormal Lab Results
08/01/23
04:00
MCH 32.9 H pg
(27.0-31.0)
Abs Immat Gran (auto) 0.1 H 10^3/uL
(0-0.05)
Absolute Neuts (auto) 6.7 H 10^3/uL
(1.4-6.5)
Absolute Monos (auto) 0.9 H 10^3/uL
(0.1-0.6)
Immature Gran % 1.4 H %
(0-0.5)
Lymphocytes % 19.3 L %
(20.5-51.1)
Monocytes % 9.4 H %
(1.7-9.3)
08/01/23 04:00
08/01/23 04:00
Vital Signs
Initial and Last Documented VS:
Initial Vital Signs
Temp Pulse Resp BP Pulse Ox
98.1 F 78 20 129/93 97
08/01/23 02:45 08/01/23 02:45 08/01/23 02:45 08/01/23 02:45 08/01/23 02:45
Last Documented Vital Signs
Temp Pulse Resp BP Pulse Ox
98.1 F 76 23 129/93 89
08/01/23 02:45 08/01/23 04:15 08/01/23 04:15 08/01/23 02:45 08/01/23 04:15
MDM/Problems Addressed
Differential Diagnosis Includes:
HPI and MDM Narrative:
52-year-old male presenting with worsening shortness of breath over the past several weeks. Symptoms get worse when he lays flat. He initially thought it could be related to anxiety. Patient also complains of right knee after fall recently. He
has been evaluated for pitting edema in both legs in the past but states that Lasix was not helping. He received echocardiogram earlier in the month which showed no significant abnormalities. Patient was also complaining of abdominal pain for
which she also received a CT. This also shows no acute abnormalities. I question whether or not he has sleep apnea. Patient states he does but he has been unable to tolerate the mask. He is being worked up for pharyngeal surgery to alleviate the
sleep apnea problems.
Given his shortness of breath laying flat and the pitting edema, will obtain x-ray, basic blood work and EKG
Physical exam
General: Well appearing and non-toxic
HEENT: protecting airway
Neck: appears supple
CV: No evidence of cyanosis. Regular rate and rhythm
Resp: No accessory muscle use. Lungs clear
Abd: Non-distended
Extremities: +1 pitting edema bilateral lower extremities
Neuro: alert
Psych: Normal affect
Skin: Intact
Problems Addressed including Acute and Chronic Conditions affecting care:
1. Shortness of breath
Acuity: acute
Prognosis: stable
Details: Likely in setting of uncontrolled sleep apnea. Will obtain chest x-ray, basic blood work and EKG
Updates
Chest x-ray clear. Cardiac troponin and BNP negative. I long conversation with patient about losing weight and figuring around his sleep apnea. 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
Differential Diagnosis (but not limited to): Pleural effusions, sleep apnea, ACS
Testing considered: D-dimer but he is neither tachycardic nor hypoxic
Drug therapy (if applicable): OTC meds, please see d/c instruction regarding Rx drugs
Amount and/or Complexity of Data Reviewed
Clinical info obtained from: Patient
External data reviewed: N/A
Labs I independently reviewed (but not limited to): Troponin and BNP normal
Radiology: X-ray independently reviewed: Chest x-ray clear
Pulse Ox: not hypoxic
EKG independently reviewed: sinus rhythm, normal axis, no STEMI
Linux Unix Administrator: N/A
Critical Care: N/A
Risk of Complication:
Social Determinants of health: Good social support
Discussed with other providers: N/A
Escalation of Care includes Admit/Obs: After being observed in the Emergency Department, pt stable for discharge.
Occasional wrong word or 'sound a like' substitutions may have occurred due to the inherent limitations of voice recognition software. Read the chart carefully and recognize, using context, where substitutions have occurred.
*Critical Care Note
Total Time (30-74mins, 75-104mins- exclusive of procedures): Not Applicable
ED Attending Note
-
Portions of this chart may have been created with voice recognition software.� Occasional wrong word or��sound alike� substitutions may have occurred due to the inherent limitations of voice recognition software.
Discharge Plan
Departure
Patient Disposition: Home (Routine Discharge)
Date of Disposition: 08/01/23
Time of Disposition: 06:03
Patient with high blood pressure during this ER visit?: No
Discharge Problem:
Dyspnea
Instructions: Shortness of Breath, Adult ED
Prescriptions:
No Action
clonazepam [Klonopin] 1 mg Tablet
1 mg PO DAILY PRN (Reason: anxiety)
Patient Comments:
05/26/2023, pt. filled this med. on 05/15/2023 for 30 tablets according to PDMP.
Medical Marijuana
1 unit inhalation PRN PRN (Reason: anxiety)
levothyroxine 50 mcg tablet
50 mcg PO DAILY AT 0700
buspirone 10 mg tablet
10 mg PO BID
trazodone 300 mg tablet
300 mg PO HS
testosterone cypionate 200 mg/mL oil
200 mg IM Q2W
Patient Comments:
05/26/2023, pt. filled this med. on 05/19/2023 for a quantity of 4 according to PDMP.
paroxetine HCl 40 mg tablet
40 mg PO DAILY
oxycodone 5 mg tablet
5 mg PO Q6HPRN PRN (Reason: severe pain)
Patient Comments:
05/26/2023, pt. filled this med. on 05/19/2023 for 120 tablets according to PDMP.
Dilaudid powder
2.1 ml SC Q24H
Patient Comments:
05/26/2023, pt. has a dilaudid implantable pump: 2.1ml every 24 hr. Pt. filled this med. on 04/28/2023 for a quantity of 0.2 according to PDMP.
cholecalciferol (vitamin D3) 125 mcg (5,000 unit) Tablet
125 mcg PO DAILY
cephalexin 500 mg capsule
1,000 mg PO Q4H 5 Days Qty: 60 0RF
nicotine 14 mg/24 hr patch 24 hour
1 patch transdermal DAILY Qty: 28 0RF
furosemide [Lasix] 20 mg tablet
20 mg PO DAILY Qty: 5 0RF
Referrals:
Humberto Randolph DO [Family Provider] -
Activity Restrictions/Additional Instructions:
Please return for any worsening symptoms.
You may return at any time if you have further concerns.
Please follow up with your doctor at the first available appointment, preferably this week.
Thank you for choosing [facility].
Interventions
Interventions:
*Risk Screen - Suicide Last Done: 08/01/23 02:45
*General Assessment Last Done: 08/01/23 02:45
*Neglect/Abuse Screening Last Done: 08/01/23 02:45
ED- Fall Risk Assessment Last Done: 08/01/23 02:45
*ED COVID-19 Vaccine History Last Done: 08/01/23 02:45
ED- Cardiac Assessment Last Done: 08/01/23 03:18
ED-Musculoskeletal Assessment Last Done: 08/01/23 03:18
ED- Pulmonary Assessment Last Done: 08/01/23 03:18
Discharge Date and Time
Print Language: [place]
[2023-08-01 04:00] VITALS: BP 122/88
[2023-08-01 04:08] LABS: % Basophils 0.8 % (0-2); % Eosinophils 2.2 % (0-6); % Immature Granulocytes 1.4 % (0-0.5); % Lymphocytes 19.3 % (20.5-51.1); % Monocytes 9.4 % (1.7-9.3); % Neutrophils 66.9 % (42.2-75.2); Absolute Basophils 0.1 10^3/uL (0-0.2); Absolute Eosinophils 0.2 10^3/uL (0-0.7); Absolute Immature Granulocytes 0.1 10^3/uL (0-0.05); Absolute Lymphocytes 1.9 10^3/uL (1.2-3.4); Absolute Monocytes 0.9 10^3/uL (0.1-0.6); Absolute Neutrophils 6.7 10^3/uL (1.4-6.5); Hematocrit 48.9 % (39.0-52.0); Hemoglobin 17.1 g/dL (13.0-18.0); Mean Corpuscular Hgb 32.9 pg (27.0-31.0); Mean Platelet Volume 8.8 fL (7.4-10.4); Nucleated Red Blood Cells % 0 % (-); Platelet Count 155 10^3/uL (130-400); Red Cell Dist. Width 14.3 % (11.5-14.5)
[2023-08-01 04:18] VITALS: BMI 42.8
[2023-08-01 04:31] LABS: NT-proBNP < 20.0 pg/ml; Troponin I < 0.012 ng/ml
[2023-08-01 04:33] LABS: ALT (SGPT) 31 U/L (0-50); AST (SGOT) 34 U/L (17-59); Albumin 4.5 g/dl (3.5-5.0); Alkaline Phosphatase 59 U/L (38-126); Blood Urea Nitrogen 13 mg/dl (9-20); Calcium 9.2 mg/dl (8.4-10.2); Carbon Dioxide 29 mmol/L (22-30); Chloride 102 mmol/L (98-107); Estimated Creatinine Clearance 120 ml/min; Glucose 96 mg/dl (70-99); Potassium 4.2 mmol/L (3.5-5.1); Sodium 137 mmol/L (135-145); Total Bilirubin 0.6 mg/dl (0.2-1.3); eGFR > 60.00
[2023-08-01 06:00] VITALS: BP 128/90
== END 2023-08-01 06:31 | disposition home or self-care (01) ==
LOC: EMR 02:39
PROVIDERS: EMERGENCY PHYSICIAN Student in an Organized Health Care Education/Training Program; FAMILY PHYSICIAN Family Medicine
DX: R06.00 Dyspnea, unspecified (principal); R60.0 Localized edema; M25.561 Pain in right knee; R10.9 Unspecified abdominal pain; W19.XXXA Unspecified fall, initial encounter; F32.A Depression, unspecified; F41.9 Anxiety disorder, unspecified; G47.30 Sleep apnea, unspecified; G90.50 Complex regional pain syndrome I, unspecified; Z90.49 Acquired absence of other specified parts of digestive tract; Z88.1 Allergy status to other antibiotic agents; Z88.8 Allergy status to other drugs, medicaments and biological substances
CPT/HCPCS: 99284; 71046; 73564; 80053; 83880; 84484; 85025; 93005

== ENCOUNTER → 2023-08-21 10:45 | Outpatient (REF) | payer MEDICARE, OTHER, SELFPAY | LOC: RAD 10:45 | PROVIDERS: ATTENDING PHYSICIAN Family Medicine | DX: R60.9 Edema, unspecified (principal) | CPT/HCPCS: 93970 ==

== ENCOUNTER 2024-04-12 09:17 | Inpatient (IN) | payer MEDICARE, OTHER, SELFPAY ==
[2024-03-26 11:08] LABS: Hematocrit 55.5 % (39.0-52.0); Hemoglobin 18.6 g/dL (13.0-18.0); Mean Corp Hgb Conc. 33.5 g/dL (33.0-37.0); Mean Corpuscular Hgb 32.5 pg (27.0-31.0); Mean Corpuscular Volume 96.9 fL (80.0-94.0); Mean Platelet Volume 9.2 fL (7.4-10.4); Platelet Count 182 10^3/uL (130-400); Red Blood Cell Count 5.73 10^6/uL (4.70-6.10); Red Cell Dist. Width 12.9 % (11.5-14.5); White Blood Cell Count 7.6 10^3/uL (4.8-10.8)
[2024-03-26 11:28] LABS: ALT (SGPT) 29 U/L (0-50); AST (SGOT) 26 U/L (17-59); Albumin 4.8 g/dl (3.5-5.0); Alkaline Phosphatase 83 U/L (38-126); Blood Urea Nitrogen 20 mg/dl (9-20); Calcium 9.5 mg/dl (8.4-10.2); Carbon Dioxide 35 mmol/L (22-30); Chloride 98 mmol/L (98-107); Glucose 91 mg/dl (70-99); Potassium 4.7 mmol/L (3.5-5.1); Sodium 141 mmol/L (135-145); Total Bilirubin 0.6 mg/dl (0.2-1.3); Total Protein 7.2 g/dl (6.3-8.2); eGFR > 60.00
[2024-03-26 13:07] VITALS: BMI 41.2
[2024-03-26 14:16] LABS: Glycohemoglobin (HgbA1c) 5.1 % (4.0-5.6)
[2024-04-12] VITALS (16 sets, daily range): BP systolic 129–164; BP diastolic 62–104; BMI 41.2
[2024-04-12] MEDS: CELEBREX 200 MG PO (09:43)
[2024-04-12] MEDS: NORMOSOL-R/PLASMALYTE-A 1000 IV (09:44)
[2024-04-12] MEDS: TYLENOL 650 MG PO ×4 (09:44→23:01)
--- NOTE | 2024-04-12 14:35 | W.PN.UPDATE ---
Update Note
Progress Note Update
L TKA Dr. Root 04/11/24
DVT ppx-ASA-vs Eliquis
Hypercoagulable state: SLE, venous insufficiency, morbid obesity, immobility due to /CVA, orthopedic surgery/knee
-advise SCD device at home
Morbid obesity-BMI 41.2-+ Cefadroxil ppx Rx d/c
SLE
Opioid dependence/chronic pain--adjust pain meds
PMH:
? CVA-L hemiparesis
HTN
HLD
Depression/anxiety
Insomnia
Hypothyroid
[2024-04-12] MEDS: DILAUDID 0.5 MG IV ×3 (14:39→15:20)
[2024-04-12] MEDS: ZOFRAN 4 MG IV (14:40)
[2024-04-12] MEDS: COMPAZINE 5 MG IV (14:49)
[2024-04-12] MEDS: ROXICODONE 10 MG PO (14:55)
--- NOTE | 2024-04-12 14:59 | W.DS.TRANS ---
DC Summary - [employer]
-
Discharge Instructions:
Discharge Diagnosis/Procedures L TKA Dr. Root 04/12/24
Diet As tolerated
Activity With Walker
Driving Restrictions No driving
Bathing Restrictions OK to Shower
Other Services PT
Instructions:
Stand-Alone Forms: Total Hip/Knee Replacement D/C
Changes to Home Medications: Yes
Discharge Medications:
DC Medications w/original date entered in [employer]
Dilaudid 2.1 ml SC Q24H pain 05/19/23
buspirone 10 mg tablet 15 mg PO BID anxiety 05/19/23
levothyroxine 50 mcg tablet 50 mcg PO DAILY AT 0700 Thyroid 05/19/23
oxycodone 5 mg tablet 10 mg PO QID 05/19/23
paroxetine HCl 40 mg tablet 40 mg PO DAILY Mental Health/Anxiety 05/19/23
testosterone cypionate 200 mg/mL intramuscular oil 200 mg IM Q2W on Mondays05/19/23
trazodone 300 mg tablet 150 mg PO HS sleep 05/19/23
cholecalciferol (vitamin D3) 125 mcg (5,000 unit) tablet 125 mcg PO DAILY Supplement 05/26/23
Medical Marijuana 1 unit inhalation PRN PRN anxiety, pain 05/30/23
furosemide 20 mg tablet (Lasix) 20 mg PO DAILY #5 tabs 06/07/23
albuterol sulfate 90 mcg/actuation aerosol inhaler 1 inh inhalation PRN PRN shortness of breath, wheezing 03/23/24
aripiprazole 5 mg tablet (Abilify) 5 mg PO DAILY 03/23/24
pantoprazole 40 mg tablet,delayed release 40 mg PO DAILY 03/23/24
propranolol 40 mg tablet 40 mg PO DAILY 03/23/24
Saccharomyces boulardii 250 mg capsule (Florastor) 250 mg PO BID #1 cap 04/12/24
acetaminophen 325 mg tablet (Tylenol) 650 mg (2 x 325 mg) PO QID #1 tab 04/12/24
apixaban 2.5 mg tablet (Eliquis) 2.5 mg PO BID Blood clot prevention/tx #90 tabs 04/12/24
cefadroxil 500 mg capsule 500 mg PO BID infection prevention #14 caps 04/12/24
dexamethasone 4 mg tablet 4 mg PO BID inflammation #6 tabs 04/12/24
docusate sodium 100 mg capsule (Colace) 100 mg PO BID stool softner #1 cap 04/12/24
magnesium hydroxide 400 mg/5 mL oral suspension (Milk of Magnesia) 30 ml PO HS PRN Constipation #1 mL 04/12/24
mupirocin 2 % topical ointment 1 applic topical BID 04/12/24
ondansetron 4 mg disintegrating tablet 4 mg PO Q6H PRN n/v #20 tabs 04/12/24
sennosides 8.6 mg tablet (Senokot) 17.2 mg (2 x 8.6 mg) PO BID laxative #2 tabs 04/12/24
Home Medication Changes
Saccharomyces boulardii 250 mg capsule (Florastor) 250 mg PO BID #1 cap 04/12/24
acetaminophen 325 mg tablet (Tylenol) 650 mg (2 x 325 mg) PO QID #1 tab 04/12/24
apixaban 2.5 mg tablet (Eliquis) 2.5 mg PO BID Blood clot prevention/tx #90 tabs 04/12/24
cefadroxil 500 mg capsule 500 mg PO BID infection prevention #14 caps 04/12/24
dexamethasone 4 mg tablet 4 mg PO BID inflammation #6 tabs 04/12/24
docusate sodium 100 mg capsule (Colace) 100 mg PO BID stool softner #1 cap 04/12/24
magnesium hydroxide 400 mg/5 mL oral suspension (Milk of Magnesia) 30 ml PO HS PRN Constipation #1 mL 04/12/24
mupirocin 2 % topical ointment 1 applic topical BID 04/12/24
ondansetron 4 mg disintegrating tablet 4 mg PO Q6H PRN n/v #20 tabs 04/12/24
sennosides 8.6 mg tablet (Senokot) 17.2 mg (2 x 8.6 mg) PO BID laxative #2 tabs 04/12/24
Pending Results: No
[2024-04-12] MEDS: OXYCONTIN (CONTROLLED RELEASE) 10 MG PO (15:02)
[2024-04-12] MEDS: KETAMINE HCL 30 MG IV (15:17)
[2024-04-12] MEDS: LYRICA 75 MG PO ×2 (15:54→22:20)
[2024-04-12] MEDS: DECADRON 6 MG IV (15:55)
[2024-04-12] MEDS: ATIVAN 1 MG IV ×2 (15:59→22:20)
--- NOTE | 2024-04-12 17:30 | SUR.PHASEI ---
patient with chronic pain in pacu post total knee, screaming out. seen by dr Andrew - medicated with both po and IV narcotic and also ketamine and precedex by Dr Andrew. Fatuma ALBERTO updated and added Ativan, decadron, Lyrica in pacu -as
patient continued to state pain was 10/10 - though dozing at intervals. With ativan sleeping snoring, maintaining sats. vss, states pain down to 4/10. easily arousable. discharge to [address] [place] [address]. report given by A Winston RN - hand off at
bedside.
--- NOTE | 2024-04-12 17:59 | PTCARENOTE ---
Pt received from PACU s/p L TKA. AAOx3. Drowsy but arousable to voice. NSR on manager monitoring. SpO2 98% on 2L. Pt complains of 6/10 L knee pain. L knee dressing with moderate amount of drainage. Neurovascular checks to LLE WDL. Pt resting in bed.
Call [place] within reach. Assessment documented.
[2024-04-12] MEDS: NSS (PRESERVATIVE FREE) IV (18:18)
[2024-04-12] MEDS: ANCEF 5 IV (20:40)
[2024-04-12] MEDS: BACTROBAN 2% OINTMENT 1 APPLIC NASAL (20:44)
[2024-04-12] MEDS: ELIQUIS 2.5 MG PO (20:45)
[2024-04-12] MEDS: SENOKOT 17.2 MG PO (20:45)
[2024-04-12] MEDS: BUSPAR 15 MG PO (20:45)
[2024-04-12] MEDS: COLACE 100 MG PO (20:45)
[2024-04-12] MEDS: NSS (PRESERVATIVE FREE) 0.5 ML IV (22:20)
[2024-04-12] MEDS: DESYREL 150 MG PO (22:48)
[2024-04-13 03:05] VITALS: BP 124/57
[2024-04-13] MEDS: TYLENOL 650 MG PO ×3 (04:55→12:00)
[2024-04-13] MEDS: ANCEF 5 IV (04:55)
[2024-04-13 06:00] VITALS: BMI 41.7
[2024-04-13] MEDS: SYNTHROID 50 MCG PO (06:26)
[2024-04-13 07:05] VITALS: BP 115/61
--- NOTE | 2024-04-13 08:10 | W.PN.ORTHO ---
Today's Communication / Plan
-
d/c
Assessment
.
Distal Motor Intact: Yes
Dressing:
Clean, dry and intact.
Assessment:
Incisional drainage-change dressing-+ TXA-hemodynamically stable
Hypercoagulable state: SLE, venous insufficiency, morbid obesity, immobility due to /CVA, orthopedic surgery/knee
-advise SCD device at home+ Eiquis
Morbid obesity-BMI 41.2-+ Cefadroxil ppx Rx d/c
SLE
Opioid dependence/chronic pain--adjusted pain meds-pain well controlled-f/u pain specialist
Plan
.
Surgery / Date: L BRANDIE Root 04/11/24
DVT Prophylaxis: Other (Eliquis 2.5mg bid)
Activity:
Out of bed.
PT/OT
Discharge Plan: Home w/ Outpatient PT
Subjective
.
.:
Patient resting comfortably.
Vital Signs and Labs
.
Vital Signs and Labs:
Lab Results
03/26/24 09:07
03/26/24 09:07
Temp Pulse Resp BP Pulse Ox
98.2 F 71 17 124/57 93
04/13/24 03:05 04/13/24 03:05 04/13/24 03:05 04/13/24 03:05 04/13/24 03:05
Non-invasive Hgb result: 15.7
Physical Exam
-
HEENT: No pallor, cyanosis, or jaundice. Throat clear.
NECK: Supple. No JVD.
ABDOMEN: Soft, non-tender. No distension. BS+/normal.
EXTREMITIES: strength equal, no calf pain with palpation-aqacell drainage
CERTIFIED TRAVEL COUNSELOR: AOx3. No focal deficits. account services manager grossly intact
[2024-04-13] MEDS: BACTROBAN 2% OINTMENT 1 APPLIC NASAL (08:50)
[2024-04-13] MEDS: SENOKOT 17.2 MG PO (08:50)
[2024-04-13] MEDS: CYKLOKAPRON 1300 MG PO (08:50)
[2024-04-13] MEDS: PROTONIX 40 MG PO (08:50)
[2024-04-13] MEDS: ATIVAN 1 MG IV (08:51)
[2024-04-13] MEDS: NSS (PRESERVATIVE FREE) 0.5 ML IV (08:51)
[2024-04-13] MEDS: VITAMIN D3 (cholecalciferol) 125 MCG PO (08:52)
[2024-04-13] MEDS: PAXIL 40 MG PO (08:52)
[2024-04-13] MEDS: BUSPAR 15 MG PO (08:52)
[2024-04-13] MEDS: ABILIFY 5 MG PO (08:52)
[2024-04-13] MEDS: COLACE 100 MG PO (08:53)
[2024-04-13] MEDS: LYRICA 75 MG PO (08:53)
[2024-04-13] MEDS: ELIQUIS 2.5 MG PO (08:53)
[2024-04-13] MEDS: FLUSH (NSS) 3 FLUSH IV (08:54)
[2024-04-13] MEDS: DECADRON 6 MG IV (08:54)
[2024-04-13] MEDS: ROXICODONE 10 MG PO (09:03)
[2024-04-13 10:05] VITALS: BP 134/81; PULSE 83; O2SAT 92
[2024-04-13 10:18] VITALS: BP 134/81; PULSE 83; O2SAT 93
[2024-04-13 11:05] VITALS: BP 133/72
--- NOTE | 2024-04-13 11:06 | CM ---
Met with pt at bedside
Pt reports he lives alone in an apartment; elevator access, FF set-up
Independent at baseline, drives. Will have family support at discharge
DME - rolling walker, single point cane
SNF/HH - no past hx
Has ride at discharge
PCP - Humberto Randolph
Pharm - [facility]
Has outpatient PT appt scheduled for tomorrow at [facility]. Has Rx and has transport
Plan - home with outpatient PT
[2024-04-13 11:34] VITALS: BP 133/72
== END 2024-04-13 12:54 | disposition home or self-care (01) | DRG 470 ==
LOC: 2 SOUTH 09:17
PROVIDERS: ADMITTING PHYSICIAN Specialist; FAMILY PHYSICIAN Family Medicine
PROC: 0SRD0J9 Replacement of Left Knee Joint with Synthetic Substitute, Cemented, Open Approach (ICD-10-PCS; 2024-04-12)
DX: M17.12 Unilateral primary osteoarthritis, left knee (principal); Z68.41 Body mass index [BMI] 40.0-44.9, adult; E66.01 Morbid (severe) obesity due to excess calories; E55.9 Vitamin D deficiency, unspecified; G47.33 Obstructive sleep apnea (adult) (pediatric); G89.4 Chronic pain syndrome; F41.9 Anxiety disorder, unspecified; E78.5 Hyperlipidemia, unspecified; F43.10 Post-traumatic stress disorder, unspecified; Z59.89 Other problems related to housing and economic circumstances
CPT/HCPCS: 36415; 73560; 80053; 83036; 85027; 87070; 93005; 97110; 97116; 97162; 97166; 97530; 97535; C1713; C1776

== ENCOUNTER 2024-04-13 18:39 | Emergency (ER) | payer MEDICARE, OTHER, SELFPAY ==
[2024-04-13 18:42] VITALS: BP 141/97
--- NOTE | 2024-04-13 19:47 | ED.GENMED ---
History of Present Illness
General
Chief Complaint: Skin Problem
Time Seen by Provider: 04/13/24 19:12
History of Present Illness
History of Present Illness:
53-year-old male presents to the emergency department for evaluation of left lower extremity bleeding, he is 1 day status post left total knee replacement performed by [facility]. He noted blood was saturating the dressing earlier today
and contacted his orthopedic surgeon who advised him to follow-up in the office tomorrow morning. The symptoms worsened prompting him to come to the ED today. He is no longer on anticoagulants at this time
Past History
Past History
ED Past Medical History: Psychiatric (Anxiety, depression) and Other (RSD)
ED Past Surgical History: Appendectomy, Cholecystectomy, Orthopedic and Other
Social History
Tobacco: Non-smoker
Alcohol: None
Drug: None
Personal:
Living: with family
Employment: Employed
Family History
Family History: Other (Noncontributory)
Review of Systems
Review of Systems
Allergies reviewed?: Yes
All Other Systems: ROS reviewed and negative except as documented in HPI and ROS
Phy Exam
Physical Exam
Physical Exam:
GEN: Well appearing, NAD, WDWN
HEENT: Oral mucosa moist, no scleral icterus
Cardiac: Regular rate
Lung: No respiratory distress, no tachypnea
MSK: Blood saturated Aquacel dressing to left lower extremity. Area cleansed and dressing removed, no active bleeding from well-approximated surgical incision
Skin: Good color, no pallor or jaundice, no rashes
Neuro: AO x3, moves all extremities freely
Psych: Calm, cooperative
Course
Vital Signs
Initial and Last Documented VS:
Initial Vital Signs
Temp Pulse Resp BP Pulse Ox
97.8 F 109 17 141/97 95
04/13/24 18:42 04/13/24 18:42 04/13/24 18:42 04/13/24 18:42 04/13/24 18:42
Last Documented Vital Signs
Temp Pulse Resp BP Pulse Ox
97.8 F 109 17 141/97 95
04/13/24 18:42 04/13/24 18:42 04/13/24 18:42 04/13/24 18:42 04/13/24 18:42
MDM/Problems Addressed
MDM/Problems Addressed:
Area cleansed and dressing replaced, patient will follow-up with orthopedics tomorrow
*Critical Care Note
Total Time (30-74mins, 75-104mins- exclusive of procedures): Not Applicable
ED Attending Note
-
Portions of this chart may have been created with voice recognition software.� Occasional wrong word or��sound alike� substitutions may have occurred due to the inherent limitations of voice recognition software.
Discharge Plan
Departure
Patient Disposition: Home (Routine Discharge)
Date of Disposition: 04/13/24
Time of Disposition: 19:47
Patient with high blood pressure during this ER visit?: No
Discharge Problem:
Post-op bleeding
Prescriptions:
No Action
Medical Marijuana
1 unit inhalation PRN PRN (Reason: anxiety, pain)
levothyroxine 50 mcg tablet
50 mcg PO DAILY AT 0700
buspirone 10 mg tablet
15 mg PO BID
trazodone 300 mg tablet
150 mg PO HS
testosterone cypionate 200 mg/mL oil
200 mg IM Q2W
Patient Comments:
05/26/2023, pt. filled this med. on 05/19/2023 for a quantity of 4 according to PDMP.
paroxetine HCl 40 mg tablet
40 mg PO DAILY
oxycodone 5 mg tablet
10 mg PO QID
Patient Comments:
05/26/2023, pt. filled this med. on 05/19/2023 for 120 tablets according to PDMP.
Dilaudid powder
2.1 ml SC Q24H
Patient Comments:
05/26/2023, pt. has a dilaudid implantable pump: 2.1ml every 24 hr. Pt. filled this med. on 04/28/2023 for a quantity of 0.2 according to PDMP. (0.089mg/hr)
cholecalciferol (vitamin D3) 125 mcg (5,000 unit) Tablet
125 mcg PO DAILY
furosemide [Lasix] 20 mg tablet
20 mg PO DAILY Qty: 5 0RF
propranolol 40 mg Tablet
40 mg PO DAILY
pantoprazole 40 mg Tablet,Delayed Release (Dr/Ec)
40 mg PO DAILY
albuterol sulfate 90 mcg/actuation Hfa Aerosol Inhaler
1 inh INHALATION PRN PRN (Reason: shortness of breath, wheezing)
aripiprazole [Abilify] 5 mg Tablet
5 mg PO DAILY
mupirocin 2 % Ointment
1 applic TOPICAL BID
Patient Comments:
started treatment friday04/09/24 and completed BID
Eliquis 2.5 mg tablet
2.5 mg PO BID Qty: 90 0RF
cefadroxil 500 mg capsule
500 mg PO BID Qty: 14 0RF
Rx Instructions:
*Take w/ food
*Take w/ probiotic
*POST-OP USE
docusate sodium [Colace] 100 mg capsule
100 mg PO BID Qty: 1 0RF
dexamethasone 4 mg tablet
4 mg PO BID Qty: 6 0RF
Rx Instructions:
take with food
post-op use only
Saccharomyces boulardii [Florastor] 250 mg capsule
250 mg PO BID Qty: 1 0RF
magnesium hydroxide [Milk of Magnesia] 400 mg/5 mL suspension
30 ml PO HS PRN (Reason: Constipation) Qty: 1 0RF
sennosides [Senokot] 8.6 mg tablet
17.2 mg PO BID Qty: 2 0RF
ondansetron [ondansetron] 4 mg tablet,disintegrating
4 mg PO Q6H PRN (Reason: n/v) Qty: 20 0RF
Rx Instructions:
take 1/2h b/f pain med if recurrent nausea
allow to dissolve in mouth w/o water
acetaminophen [Tylenol] 325 mg tablet
650 mg PO QID Qty: 1 0RF
Rx Instructions:
SCHEDULED DOSING
Referrals:
Humberto Randolph DO [Family Provider] -
Activity Restrictions/Additional Instructions:
Call Dr Root office in the morning
Interventions
Interventions:
*Risk Screen - Suicide Last Done: 04/13/24 18:43
*General Assessment Last Done: 04/13/24 18:43
*Neglect/Abuse Screening Last Done: 04/13/24 18:43
*ED COVID-19 Vaccine History Last Done: 04/13/24 18:43
Discharge Date and Time
Print Language: CANADIAN
[2024-04-13 20:18] VITALS: BP 136/89
== END 2024-04-13 20:20 | disposition home or self-care (01) ==
LOC: EMR 18:39
PROVIDERS: EMERGENCY PHYSICIAN Emergency Medicine; FAMILY PHYSICIAN Family Medicine
DX: M96.830 Postprocedural hemorrhage of a musculoskeletal structure following a musculoskeletal system procedure (principal); Y83.8 Other surgical procedures as the cause of abnormal reaction of the patient, or of later complication, without mention of misadventure at the time of the procedure; Z90.49 Acquired absence of other specified parts of digestive tract; Z96.652 Presence of left artificial knee joint
CPT/HCPCS: 99282

== ENCOUNTER 2024-04-13 22:43 | Emergency (ER) | payer MEDICARE, OTHER, SELFPAY ==
[2024-04-13 22:49] VITALS: BP 144/98
--- NOTE | 2024-04-14 00:14 | ED.SKININJ ---
HPI-Injury
General
Chief Complaint: Skin Problem
Source: patient
Exam Limitations: none
Time Seen by Provider: 04/14/24 00:01
Nursing documentation reviewed up to this point in time: agreed with
History of Present Illness-Injury
Initial Injury comments:
Pleasant 53-year-old male that presents with bleeding from his postoperative surgical site. He had a knee replacement surgery by Dr. Root on Friday. He is 1 day postop. He noted that blood was saturating his dressing so he contacted his
orthopedic surgeon. He was advised to come into the office Friday morning for evaluation. When the bleeding did not stop, he came into the emergency department. His wound was cleansed and the dressing was replaced. He got home and sat down in
a chair and noticed more bleeding. He has RSD in his left hand and is unable to move his fingers. He was unable to apply a dressing to the wound so he came back to the emergency department.
Past History
Past History
ED Past Medical History: Psychiatric (Anxiety, depression) and Other (RSD)
ED Past Surgical History: Appendectomy, Cholecystectomy, Orthopedic and Other
Social History
Tobacco: Non-smoker
Alcohol: None
Drug: None
Personal:
Living: with family
Employment: Employed
Family History
Family History: Other (Noncontributory)
Phy Exam
General Physical Exam
General Presentation: well appearing and no apparent distress
General Skin: warm and dry
General Habitus: normal
General Mental: alert
General Hydration: appears well hydrated
ENT Exam
ENT Exam: EOMI, pharynx normal, neck supple and normocephalic
Eye Exam
Eye Exam: PERRL, cornea clear and conjunctiva normal
Cardiovascular Exam
Cardiovascular Exam: regular rate/rhythm, no edema, no murmur and normal peripheral pulses
Pulmonary Exam
Pulmonary Exam: lungs clear, no respiratory distress, no rales, no crackles, no rhonchi, no stridor, no wheezing and no cough
Gastrointestinal Exam
Gastrointestinal Exam: normal bowel sounds, non tender, soft, no organomegaly, no pulsatile mass and non distended
Neurological Exam
Neurological Exam: alert, oriented x3, no motor deficits and speech normal
Musculoskeletal Exam
Musculoskeletal Exam: other (contractures left hand)
Skin Exam
Skin Exam: normal color, warm/dry and other (well appearing op site, jeff in place)
Psychiatric Exam
Psychiatric Exam: normal mood/affect
Course
Vital Signs
Initial and Last Documented VS:
Initial Vital Signs
Temp Pulse Resp BP Pulse Ox
98.8 F 102 17 144/98 98
04/13/24 22:49 04/13/24 22:49 04/13/24 22:49 04/13/24 22:49 04/13/24 22:49
Last Documented Vital Signs
Temp Pulse Resp BP Pulse Ox
98.8 F 77 18 117/94 96
04/13/24 22:49 04/14/24 00:32 04/14/24 00:32 04/14/24 00:32 04/14/24 00:32
*Critical Care Note
Total Time (30-74mins, 75-104mins- exclusive of procedures): Not Applicable
ED Attending Note
-
Portions of this chart may have been created with voice recognition software.� Occasional wrong word or��sound alike� substitutions may have occurred due to the inherent limitations of voice recognition software.
Discharge Plan
Departure
Patient Disposition: Home (Routine Discharge)
Date of Disposition: 04/14/24
Time of Disposition: 00:19
Patient with high blood pressure during this ER visit?: Yes
Discharge Problem:
Post-op bleeding
Instructions: Wound Care (DC), Bleeding After Surgery, BLOOD PRESSURE
Prescriptions:
No Action
Medical Marijuana
1 unit inhalation PRN PRN (Reason: anxiety, pain)
levothyroxine 50 mcg tablet
50 mcg PO DAILY AT 0700
buspirone 10 mg tablet
15 mg PO BID
trazodone 300 mg tablet
150 mg PO HS
testosterone cypionate 200 mg/mL oil
200 mg IM Q2W
Patient Comments:
05/26/2023, pt. filled this med. on 05/19/2023 for a quantity of 4 according to PDMP.
paroxetine HCl 40 mg tablet
40 mg PO DAILY
oxycodone 5 mg tablet
10 mg PO QID
Patient Comments:
05/26/2023, pt. filled this med. on 05/19/2023 for 120 tablets according to PDMP.
Dilaudid powder
2.1 ml SC Q24H
Patient Comments:
05/26/2023, pt. has a dilaudid implantable pump: 2.1ml every 24 hr. Pt. filled this med. on 04/28/2023 for a quantity of 0.2 according to PDMP. (0.089mg/hr)
cholecalciferol (vitamin D3) 125 mcg (5,000 unit) Tablet
125 mcg PO DAILY
furosemide [Lasix] 20 mg tablet
20 mg PO DAILY Qty: 5 0RF
propranolol 40 mg Tablet
40 mg PO DAILY
pantoprazole 40 mg Tablet,Delayed Release (Dr/Ec)
40 mg PO DAILY
albuterol sulfate 90 mcg/actuation Hfa Aerosol Inhaler
1 inh INHALATION PRN PRN (Reason: shortness of breath, wheezing)
aripiprazole [Abilify] 5 mg Tablet
5 mg PO DAILY
mupirocin 2 % Ointment
1 applic TOPICAL BID
Patient Comments:
started treatment friday04/09/24 and completed BID
Eliquis 2.5 mg tablet
2.5 mg PO BID Qty: 90 0RF
cefadroxil 500 mg capsule
500 mg PO BID Qty: 14 0RF
Rx Instructions:
*Take w/ food
*Take w/ probiotic
*POST-OP USE
docusate sodium [Colace] 100 mg capsule
100 mg PO BID Qty: 1 0RF
dexamethasone 4 mg tablet
4 mg PO BID Qty: 6 0RF
Rx Instructions:
take with food
post-op use only
Saccharomyces boulardii [Florastor] 250 mg capsule
250 mg PO BID Qty: 1 0RF
magnesium hydroxide [Milk of Magnesia] 400 mg/5 mL suspension
30 ml PO HS PRN (Reason: Constipation) Qty: 1 0RF
sennosides [Senokot] 8.6 mg tablet
17.2 mg PO BID Qty: 2 0RF
ondansetron [ondansetron] 4 mg tablet,disintegrating
4 mg PO Q6H PRN (Reason: n/v) Qty: 20 0RF
Rx Instructions:
take 1/2h b/f pain med if recurrent nausea
allow to dissolve in mouth w/o water
acetaminophen [Tylenol] 325 mg tablet
650 mg PO QID Qty: 1 0RF
Rx Instructions:
SCHEDULED DOSING
Referrals:
Baldev Root MD [Active] - Keep scheduled appt
Humberto Randolph DO [Family Provider] -
Activity Restrictions/Additional Instructions:
Please keep your appointment with orthopedics scheduled for Friday
It was a pleasure meeting you and taking part in your care. We hope for your continued healing and wellness.
Please read discharge instructions in their entirety. However, they are for general education and may not describe your exact diagnosis at discharge. Information on your ER visit and medical conditions were discussed with you along with appropriate
follow up information...
If indicated, please take your medications as instructed and indicated on discharge paperwork.
Please schedule a follow up appointment as directed. Call to schedule an appointment
Please return to the emergency department with ANY change in, persisting, or worsening of symptoms. If any of your symptoms do not improve, or persist, or become more severe within 6-12 hours, please return to the emergency department for further
care.
Please return to the emergency department if you develop a headache, neck pain/stiffness, fever greater than 100.4F, chest pain, shortness of breath, persistent nausea, vomiting, slurred speech, difficulty walking, numbness/tingling, weakness, signs
of infection or any other symptoms that are worrisome to you.
If you have any questions or concerns please do not hesitate to call the Hospital at or E-mail me directly at [email or web address]
Interventions
Interventions:
*Risk Screen - Suicide Last Done: 04/13/24 22:51
*General Assessment Last Done: 04/13/24 22:51
*Neglect/Abuse Screening Last Done: 04/13/24 22:51
*ED COVID-19 Vaccine History Last Done: 04/13/24 22:51
*Nursing Disposition Last Done: 04/14/24 00:36
ED-Skin Assessment Last Done: 04/14/24 00:36
Discharge Date and Time
Discharge Date/Time: 04/14/24 00:37
Print Language: CHILEAN
[2024-04-14 00:32] VITALS: BP 117/94
== END 2024-04-14 00:37 | disposition home or self-care (01) ==
LOC: EMR 22:43
PROVIDERS: EMERGENCY PHYSICIAN Student in an Organized Health Care Education/Training Program; FAMILY PHYSICIAN Family Medicine
DX: M96.830 Postprocedural hemorrhage of a musculoskeletal structure following a musculoskeletal system procedure (principal); Z96.659 Presence of unspecified artificial knee joint
CPT/HCPCS: 99282

== ENCOUNTER 2024-04-16 07:14 | Emergency (ER) | payer MEDICARE, OTHER, SELFPAY ==
[2024-04-16 07:18] VITALS: BP 131/83
--- NOTE | 2024-04-16 08:31 | ED.GENMED ---
History of Present Illness
General
Chief Complaint: Post Operative Problem(s)
Source: patient
Exam Limitations: none
Time Seen by Provider: 04/16/24 08:18
Nursing documentation reviewed up to this point in time: agreed with
History of Present Illness
History of Present Illness:
53 y/o M
4 days post op total L knee replacement burrows
has been here 3 times for bleding from the incision
stopped AC but is on baby asa
each time pt was seen he had his wound redressed and jillian wrapped
pt has also been to ortho
yesterday he had ok day, no bleeding
but today started oozing through gauze again
Past History
Past History
ED Past Medical History: Psychiatric (Anxiety, depression) and Other (RSD)
ED Past Surgical History: Appendectomy, Cholecystectomy, Orthopedic and Other
Social History
Tobacco: Non-smoker
Alcohol: None
Drug: None
Personal:
Living: with family
Employment: Employed
Family History
Family History: Other (Noncontributory)
Review of Systems
Review of Systems
Allergies reviewed?: Yes
All Other Systems: Not applicable
Phy Exam
Physical Exam
Physical Exam:
GENERAL: Alert , in no apparent distress, comfortable at rest
HEAD: NCAT
CV: 2+ DP PULSES B/L
NEUROLOGICAL: Alert and oriented, no focal neuro deficits, , 5/5 strength, sensation intact, ambulation slight limp right leg
SKIN: Warm and dry,
MUSCULOSKELETAL: Significant bruising and swelling to the right thigh down to the right foot consistent with previous surgery, there is a vertically oriented incision on the anterior patellar knee region that is closed seems to be oozing from the
inferior aspect of it
His dressing was saturated the Aquacel was removed
PSYCH: Normal and appropriate interaction.
Course
Vital Signs
Initial and Last Documented VS:
Initial Vital Signs
Temp Pulse Resp BP Pulse Ox
36.6 C 79 18 131/83 98
04/16/24 07:18 04/16/24 07:18 04/16/24 07:18 04/16/24 07:18 04/16/24 07:18
Last Documented Vital Signs
Temp Pulse Resp BP Pulse Ox
36.6 C 79 18 131/83 98
04/16/24 07:18 04/16/24 07:18 04/16/24 07:18 04/16/24 07:18 04/16/24 07:18
MDM/Problems Addressed
Differential Diagnosis Includes:
wound dehiscence
MDM/Problems Addressed:
post op day 4
incision bleeding
d/w dr. solis from [facility]
recommended redressing the wound an dhaving him make olga twith the office for later today
i called the office to arrange this
pt has no dizziness, presyncope
bleeding ocntrolled
*Critical Care Note
Total Time (30-74mins, 75-104mins- exclusive of procedures): Not Applicable
ED Attending Note
-
Portions of this chart may have been created with voice recognition software.� Occasional wrong word or��sound alike� substitutions may have occurred due to the inherent limitations of voice recognition software.
Discharge Plan
Departure
Patient Disposition: Home (Routine Discharge)
Date of Disposition: 04/16/24
Time of Disposition: 08:49
Patient with high blood pressure during this ER visit?: No
Condition: Fair
Covid-19: Not Applicable
Discharge Problem:
Post-op bleeding
Instructions: Bleeding After Surgery
Prescriptions:
No Action
Medical Marijuana
1 unit inhalation PRN PRN (Reason: anxiety, pain)
levothyroxine 50 mcg tablet
50 mcg PO DAILY AT 0700
buspirone 10 mg tablet
15 mg PO BID
trazodone 300 mg tablet
150 mg PO HS
testosterone cypionate 200 mg/mL oil
200 mg IM Q2W
Patient Comments:
05/26/2023, pt. filled this med. on 05/19/2023 for a quantity of 4 according to PDMP.
paroxetine HCl 40 mg tablet
40 mg PO DAILY
oxycodone 5 mg tablet
10 mg PO QID
Patient Comments:
05/26/2023, pt. filled this med. on 05/19/2023 for 120 tablets according to PDMP.
Dilaudid powder
2.1 ml SC Q24H
Patient Comments:
05/26/2023, pt. has a dilaudid implantable pump: 2.1ml every 24 hr. Pt. filled this med. on 04/28/2023 for a quantity of 0.2 according to PDMP. (0.089mg/hr)
cholecalciferol (vitamin D3) 125 mcg (5,000 unit) Tablet
125 mcg PO DAILY
furosemide [Lasix] 20 mg tablet
20 mg PO DAILY Qty: 5 0RF
propranolol 40 mg Tablet
40 mg PO DAILY
pantoprazole 40 mg Tablet,Delayed Release (Dr/Ec)
40 mg PO DAILY
albuterol sulfate 90 mcg/actuation Hfa Aerosol Inhaler
1 inh INHALATION PRN PRN (Reason: shortness of breath, wheezing)
aripiprazole [Abilify] 5 mg Tablet
5 mg PO DAILY
mupirocin 2 % Ointment
1 applic TOPICAL BID
Patient Comments:
started treatment friday04/09/24 and completed BID
Eliquis 2.5 mg tablet
2.5 mg PO BID Qty: 90 0RF
cefadroxil 500 mg capsule
500 mg PO BID Qty: 14 0RF
Rx Instructions:
*Take w/ food
*Take w/ probiotic
*POST-OP USE
docusate sodium [Colace] 100 mg capsule
100 mg PO BID Qty: 1 0RF
dexamethasone 4 mg tablet
4 mg PO BID Qty: 6 0RF
Rx Instructions:
take with food
post-op use only
Saccharomyces boulardii [Florastor] 250 mg capsule
250 mg PO BID Qty: 1 0RF
magnesium hydroxide [Milk of Magnesia] 400 mg/5 mL suspension
30 ml PO HS PRN (Reason: Constipation) Qty: 1 0RF
sennosides [Senokot] 8.6 mg tablet
17.2 mg PO BID Qty: 2 0RF
ondansetron [ondansetron] 4 mg tablet,disintegrating
4 mg PO Q6H PRN (Reason: n/v) Qty: 20 0RF
Rx Instructions:
take 1/2h b/f pain med if recurrent nausea
allow to dissolve in mouth w/o water
acetaminophen [Tylenol] 325 mg tablet
650 mg PO QID Qty: 1 0RF
Rx Instructions:
SCHEDULED DOSING
Referrals:
Baldev Solis MD [Active] - Follow up in 1 week
Humberto Randolph DO [Family Provider] -
Activity Restrictions/Additional Instructions:
I LEFT A MESSAGE FOR DR MARINA'S OFFICE TO GIVE YOU A CALL
BUT IF YOU DO NOT HEAR FROM THEM BY 930, PLEASE CALL FOR AN APPOINTMENT TODAY.
UNTIL THEN, KEEP THIS NEW DRESSING ON AND KEEP YOUR LEG ELEVATED
RETURN FOR ANY CONCERNS.
Interventions
Interventions:
*Risk Screen - Suicide Last Done: 04/16/24 07:18
*General Assessment Last Done: 04/16/24 07:18
*Neglect/Abuse Screening Last Done: 04/16/24 07:18
*Nursing Disposition Last Done: 04/16/24 09:26
Discharge Date and Time
Discharge Date/Time: 04/16/24 09:27
Print Language: AUSTRALIAN
== END 2024-04-16 09:27 | disposition home or self-care (01) ==
LOC: EMR 07:14
PROVIDERS: EMERGENCY PHYSICIAN Emergency Medicine; FAMILY PHYSICIAN Family Medicine
DX: L76.22 Postprocedural hemorrhage of skin and subcutaneous tissue following other procedure (principal); Z90.49 Acquired absence of other specified parts of digestive tract
CPT/HCPCS: 99282

== ENCOUNTER → 2024-04-26 14:43 | Outpatient (REF) | payer MEDICARE, OTHER, SELFPAY | LOC: RAD 14:43 | PROVIDERS: ATTENDING PHYSICIAN Physician Assistant Surgical; FAMILY PHYSICIAN Family Medicine | DX: Z96.652 Presence of left artificial knee joint (principal); M79.89 Other specified soft tissue disorders; M79.662 Pain in left lower leg | CPT/HCPCS: 93971 ==

== ENCOUNTER 2025-02-28 07:25 | Inpatient (IN) | payer MEDICARE, OTHER, SELFPAY ==
--- NOTE | 2025-01-26 12:46 | CM ---
CM discussed discharge planning at length. Patient stated that his RSD will hinder his recovery post operatively and feels that he needs SNF. CM discussed barriers and placement process including being recommended by Physical Therapy. CM stated
that patient would further have to stay three midnights. Patient stated that he would have his brother available to assist as during his previous surgeries, but patient feels his pain will be uncontrolled at home.
CM advised patient to review Medicare.gov regarding placement choices. CM further explained that patient may not get his first choice of SNF.
[2025-02-08 13:52] VITALS: BMI 41.2
[2025-02-08 14:11] LABS: Hematocrit 53.4 % (39.0-52.0); Hemoglobin 18.3 g/dL (13.0-18.0); Mean Corp Hgb Conc. 34.3 g/dL (33.0-37.0); Mean Corpuscular Volume 87.4 fL (80.0-94.0); Platelet Count 164 10^3/uL (130-400); Red Cell Dist. Width 12.7 % (11.5-14.5)
[2025-02-08 14:26] LABS: ALT (SGPT) 25 U/L (0-50); AST (SGOT) 24 U/L (17-59); Albumin 4.5 g/dl (3.5-5.0); Alkaline Phosphatase 100 U/L (38-126); Blood Urea Nitrogen 17 mg/dl (9-20); Calcium 9.3 mg/dl (8.4-10.2); Carbon Dioxide 32 mmol/L (22-30); Chloride 99 mmol/L (98-107); Estimated Creatinine Clearance 115 ml/min; Glucose 106 mg/dl (70-99); Potassium 4.7 mmol/L (3.5-5.1); Sodium 138 mmol/L (135-145); Total Protein 6.9 g/dl (6.3-8.2); eGFR > 60.00
[2025-02-08 14:51] VITALS: BMI 41.2
[2025-02-09 10:13] LABS: Glycohemoglobin (HgbA1c) 6.0 % (4.0-5.9)
[2025-02-28] VITALS (11 sets, daily range): BP systolic 96–150; BP diastolic 58–80; PULSE 71; O2SAT 92
[2025-02-28] MEDS: NORMOSOL-R/PLASMALYTE-A 1000 IV ×2 (08:45→13:27)
[2025-02-28] MEDS: TYLENOL 650 MG PO ×4 (08:50→23:09)
[2025-02-28] MEDS: CELEBREX 200 MG PO (08:50)
--- NOTE | 2025-02-28 10:14 | W.PN.UPDATE ---
Update Note
Progress Note Update
R knee OA s/p R TKA w/ Dr Root 02/28/25
- s/p L TKA, 04/2024, by Dr Root
DVT prophylaxis - Eliquis 2.5 mg BID x4 weeks, b/l venous foot pumps
HTN - + parameters - monitor BP
Hypercoagulable state d/t PMHx - start Eliquis 2.5 mg tonight
- Early and frequent ambulation as tolerated
- Plasma flow devices HIGHLY encouraged upon d/c
COPD
Obstructive sleep apnea, no current device
- Monitor O2
- IS
- Add Decadron to aid in lung perfusion
- Duoneb prn
- Add supplemental O2 HS
Chronic gastritis - continue PPI therapy
Chronic constipation - per pt preference, start w/ Colace and Senna initially for post-op bowel regimen
- Will add Miralax daily if no BM presents w/n 48-72 hours
- Adequate hydration, early mobility as tolerated, and the minimization of opioids have been discussed tommy-op
Complex regional pain syndrome of left upper extremity
Chronic opioid dependence secondary to the above
- Per pain mgmt, will increase Oxycodone from 15 mg to 20 mg prn
- Add Tylenol, Decadron
- Consider Gabapentin for neuropathic pain, Lorazepam or Diazepam for muscle spasms
- Monitor pain and adjust meds as indicated
Ambulatory dysfunction and balance difficulties - on fall precautions
Morbid obesity, BMI 41.1 - would benefit from prophylactic abx upon d/c
Dyslipidemia
Palpitations
Venous insufficiency
Ventral hernia, reducible and asymptomatic
CVA, 20 years of age, without residual side effects
Left-sided hemiplegia
Hypothyroidism
Cutaneous lupus erythematosus
Hypogonadism
Anxiety
Depression
PTSD
Shingles, 2021, with post herpetic neuralgia
Reported MRSA 2002; 2 negative swabs since diagnosis
Prediabetes, A1c 6.0
History of tobacco abuse
Cannabis dependence
[2025-02-28] MEDS: ABILIFY 5 MG PO (14:06)
[2025-02-28] MEDS: ABILIFY 2 MG PO (14:06)
[2025-02-28] MEDS: FLORASTOR 250 MG PO ×2 (14:06→20:00)
[2025-02-28] MEDS: PROTONIX 40 MG PO (14:06)
[2025-02-28] MEDS: PAXIL 40 MG PO (14:06)
[2025-02-28] MEDS: VITAMIN D3 (cholecalciferol) 125 MCG PO (14:06)
[2025-02-28] MEDS: SYNTHROID 50 MCG PO (14:06)
--- NOTE | 2025-02-28 14:56 | PTCARENOTE ---
Addendum entered by Belkis Mckeon RN 02/28/25 16:35:
Pt has pain management pump RLQ abdomen. Medicated per JUN.
Original Note:
1315 Pt arrived from PACU. VSS. 2LO2 98%. AAOX3. R knee primaseal dressing c/d/i. Neurovascular checks with in normal limits. Oriented to room and call [place]. bed locked and in lowest position.
[2025-02-28] MEDS: NEURONTIN 200 MG PO (15:47)
[2025-02-28] MEDS: BUSPAR 15 MG PO ×2 (15:47→21:25)
[2025-02-28] MEDS: ANCEF 5 IV (17:05)
[2025-02-28] MEDS: LIPITOR 10 MG PO (17:05)
[2025-02-28] MEDS: ROXICODONE 20 MG PO ×2 (17:05→21:54)
[2025-02-28] MEDS: NON-FORMULARY ITEM 2.456 MG SC (17:17)
[2025-02-28] MEDS: BACTROBAN 2% OINTMENT 1 APPLIC NASAL (19:58)
[2025-02-28] MEDS: COLACE 100 MG PO (19:59)
[2025-02-28] MEDS: SENOKOT 17.2 MG PO (19:59)
[2025-02-28] MEDS: DECADRON 6 MG IV (19:59)
[2025-02-28] MEDS: ELIQUIS 2.5 MG PO (20:00)
[2025-02-28] MEDS: AMBIEN 10 MG PO (21:25)
[2025-02-28] MEDS: DESYREL 200 MG PO (21:25)
[2025-03-01] MEDS: ANCEF 5 IV (01:25)
[2025-03-01 03:05] VITALS: BP 129/72
[2025-03-01] MEDS: TYLENOL 650 MG PO ×3 (03:40→13:06)
[2025-03-01] MEDS: SYNTHROID 50 MCG PO (04:19)
[2025-03-01] MEDS: ROXICODONE 20 MG PO ×3 (04:24→13:06)
[2025-03-01 07:25] VITALS: BP 120/64
[2025-03-01] MEDS: FLORASTOR 250 MG PO (09:04)
[2025-03-01] MEDS: INDERAL 40 MG PO (09:04)
[2025-03-01] MEDS: ABILIFY 5 MG PO (09:04)
[2025-03-01] MEDS: BUSPAR 15 MG PO (09:05)
[2025-03-01] MEDS: PROTONIX 40 MG PO (09:05)
[2025-03-01] MEDS: ABILIFY 2 MG PO (09:07)
[2025-03-01] MEDS: PAXIL 40 MG PO (09:07)
[2025-03-01] MEDS: ELIQUIS 2.5 MG PO (09:08)
[2025-03-01] MEDS: COLACE 100 MG PO (09:08)
[2025-03-01] MEDS: VITAMIN D3 (cholecalciferol) 125 MCG PO (09:09)
[2025-03-01] MEDS: DECADRON 6 MG IV (09:09)
[2025-03-01] MEDS: BACTROBAN 2% OINTMENT 1 APPLIC NASAL (09:11)
--- NOTE | 2025-03-01 09:12 | CM ---
Patient is for discharge today to home with outpatient physical therapy set up for 03/04/25, at [facility] physical therapy, patient will return to home on Eliquis and patient was provided with coupon that will cover his Eliquis 100%, team aware.
Patients's son to transport to home today, IMM completed.
Plan; Home today with outpatient PT with [facility] Physical therapy on 03/04/25
--- NOTE | 2025-03-01 09:34 | W.PN.ORTHO ---
Today's Communication / Plan
-
Await PT and OT recs.
D/c later today if remaining clinically stable.
Assessment
.
Distal Motor Intact: Yes
Dressing:
Small area of bleeding noted towards distal end of incision. Will change dressing.
Assessment:
R knee OA s/p R TKA w/ Dr Root 02/28/25
- s/p L TKA, 04/2024, by Dr Root
DVT prophylaxis - Eliquis 2.5 mg BID x4 weeks, b/l venous foot pumps
Incisional bleeding - will give TXA dose now
- Change dressing prior to d/c
- Monitor
HTN - + parameters - BPs overall stable
Hypercoagulable state d/t PMHx - Eliquis started evening of POD 0
- Early and frequent ambulation as tolerated
- Plasma flow devices HIGHLY encouraged upon d/c
COPD
Obstructive sleep apnea, no current device
- O2 stable on RA by POD 1 w/ measures below
- IS
- Added Decadron to aid in lung perfusion
- Duoneb prn
- Added supplemental O2 HS during admission
Chronic gastritis - continue PPI therapy
Chronic constipation
- Pt reportedly had a moderate size bowel movement POD 0. Will suggest continuing Colace for now and adding Senna if no further BM occurs in next 24-48 hours
- Adequate hydration, early mobility as tolerated, and the minimization of opioids have been discussed tommy-op
Complex regional pain syndrome of left upper extremity
Chronic opioid dependence secondary to the above
- Per pain mgmt, will increase Oxycodone from 15 mg to 20 mg prn
- Add Tylenol, Decadron
- Will add Gabapentin for neuropathic pain. Tolerated dose yesterday and this AM
- Consider Lorazepam or Diazepam for muscle spasms
- Patient happy w/ overall pain mgmt by POD 1
Ambulatory dysfunction and balance difficulties - on fall precautions
Morbid obesity, BMI 41.1 - would benefit from prophylactic abx upon d/c
Dyslipidemia
Palpitations
Venous insufficiency
Ventral hernia, reducible and asymptomatic
CVA, 20 years of age, without residual side effects
Left-sided hemiplegia
Hypothyroidism
Cutaneous lupus erythematosus
Hypogonadism
Anxiety
Depression
PTSD
Shingles, 2021, with post herpetic neuralgia
Reported MRSA 2002; 2 negative swabs since diagnosis
Prediabetes, A1c 6.0
History of tobacco abuse
Cannabis dependence
Plan
.
Surgery / Date: R TKA w/ Dr Root 02/28/25
DVT Prophylaxis: Other (Eliquis 2.5 mg PO BID x4 weeks )
Activity:
Out of bed.
PT/OT
Discharge Plan: Home w/ Outpatient PT
Subjective
.
.:
Patient examined resting in bed.
Reports R knee pain this AM; however, is due for Oxycodone. Will medicate.
Pt reports R knee pain 'much better' in comparison to previous L TKA. Is overall happy w/ current pain med regimen.
Denies any new significant complaints.
Eager for potential d/c today.
Vital Signs and Labs
.
Vital Signs and Labs:
Lab Results
02/08/25 12:49
02/08/25 12:49
Temp Pulse Resp BP Pulse Ox
98.0 F 64 16 120/69 94
03/01/25 07:25 03/01/25 09:04 03/01/25 07:25 03/01/25 09:04 03/01/25 07:25
Non-invasive Hgb result: 12.7
Physical Exam
-
HEENT: No pallor, cyanosis, or jaundice. Throat clear.
NECK: Supple. No JVD.
RESPIRATORY: Lungs clear to auscultation.
CVS: S1, S2 normal. RRR.
ABDOMEN: Soft, non-tender. No distension.
EXTREMITIES: Expected post-surgical R knee edema. Strength equal, no calf pain with palpation/dorsiflexion. Calves soft.
PROSTHODONTIST: AOx3. No focal deficits. allergy nurse grossly intact
[2025-03-01] MEDS: NEURONTIN 200 MG PO (09:43)
[2025-03-01] MEDS: CYKLOKAPRON 650 MG PO ×2 (09:43→13:22)
--- NOTE | 2025-03-01 09:50 | W.DS.TRANS ---
Addendum entered and electronically signed by Debi Cisneros PA-C 03/01/25 15:28:
Patient's dressing changed to ABDs and JESUS wrap prior to d/c. The patient previously had issues with incisional bleeding following his L TKA in April 2024. He has a planned follow-up appointment with [facility] on Friday, 03/04, to reassess incisional
bleeding. In the mean time, the patient will be advised to hold off on fully showering until that appointment.
Original Note:
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
-
Discharge Instructions:
Sleep Apnea Risk High
Discharge Diagnosis/Procedures R knee OA s/p R TKA w/ Dr Root 02/28/25
Diet Regular
Additional Diets Adequate hydration, minimize opioids, and wear
TEDs stockings to prevent low blood pressure/
dizziness.
Activity As tolerated,With Walker
Driving Restrictions Not until seen by your Dr
Bathing Restrictions OK to Shower
Other Services PT
Wound Care Dressing to be removed 1 week post-surgery.
Sandy to be removed at 2 week follow-up with
surgeon's office.
Instructions:
Stand-Alone Forms: Total Hip/Knee Replacement D/C
Changes to Home Medications: Yes
Discharge Medications:
DC Medications w/original date entered in [employer]
Dilaudid 2.456 mg SC Q24H pain 05/19/23
levothyroxine 50 mcg tablet 50 mcg PO DAILY AT 0700 Thyroid 05/19/23
paroxetine HCl 40 mg tablet 40 mg PO DAILY Mental Health/Anxiety 05/19/23
testosterone cypionate 200 mg/mL intramuscular oil 200 mg IM Q2W QMonday 05/19/23
trazodone 300 mg tablet 200 mg PO HS Insomnia 05/19/23
cholecalciferol (vitamin D3) 125 mcg (5,000 unit) tablet 125 mcg PO DAILY Supplement 05/26/23
albuterol sulfate 90 mcg/actuation aerosol inhaler 1 inh inhalation Q6HPRN PRN SOB 03/23/24
pantoprazole 40 mg tablet,delayed release 40 mg PO DAILY Gastrointestinal Issue 03/23/24
propranolol 40 mg tablet 40 mg PO DAILY Blood Pressure 03/23/24
aripiprazole 2 mg tablet 2 mg PO DAILY Mental Health/Anxiety 02/04/25
aripiprazole 5 mg tablet 5 mg PO DAILY Mental Health/Anxiety 02/04/25
buspirone 15 mg tablet 15 mg PO TID Mental Health/Anxiety 02/04/25
eszopiclone 2 mg tablet 2 mg PO HS Sleep 02/04/25
lovastatin 20 mg tablet 20 mg PO QPM High Cholesterol 02/04/25
mupirocin 2 % topical ointment 1 applic intranasal BID #1 tube 02/08/25
apixaban 2.5 mg tablet 2.5 mg PO BID Blood clot prevention/tx #60 tabs 02/24/25
cefadroxil 500 mg capsule 500 mg PO BID #14 caps 02/24/25
dexamethasone 4 mg tablet 4 mg PO BID Anti-inflammatory #5 tabs 02/24/25
ondansetron 4 mg disintegrating tablet 4 mg PO Q6H PRN nausea and vomiting #30 tabs 02/24/25
Saccharomyces boulardii 250 mg capsule (Florastor) 250 mg PO BID #14 caps 03/01/25
acetaminophen 500 mg tablet (Acetaminophen Extra Strength) 1,000 mg (2 x 500 mg) PO Q6H #60 tabs 03/01/25
docusate sodium 100 mg capsule 100 mg PO BID #30 caps 03/01/25
furosemide 20 mg tablet (Lasix) 20 mg PO DAILY edema #1 tab 03/01/25
gabapentin 100 mg capsule 200 mg (2 x 100 mg) PO TID neuropathic pain #30 caps 03/01/25
oxycodone 10 mg tablet 20 mg (2 x 10 mg) PO Q6H PRN moderate-severe pain #30 tabs 03/01/25
sennosides 8.6 mg tablet (senna) 17.2 mg (2 x 8.6 mg) PO BID PRN Constipation #30 tabs 03/01/25
Home Medication Changes
apixaban 2.5 mg tablet 2.5 mg PO BID Blood clot prevention/tx #60 tabs 02/24/25
cefadroxil 500 mg capsule 500 mg PO BID #14 caps 02/24/25
dexamethasone 4 mg tablet 4 mg PO BID Anti-inflammatory #5 tabs 02/24/25
ondansetron 4 mg disintegrating tablet 4 mg PO Q6H PRN nausea and vomiting #30 tabs 02/24/25
Saccharomyces boulardii 250 mg capsule (Florastor) 250 mg PO BID #14 caps 03/01/25
acetaminophen 500 mg tablet (Acetaminophen Extra Strength) 1,000 mg (2 x 500 mg) PO Q6H #60 tabs 03/01/25
docusate sodium 100 mg capsule 100 mg PO BID #30 caps 03/01/25
gabapentin 100 mg capsule 200 mg (2 x 100 mg) PO TID neuropathic pain #30 caps 03/01/25
oxycodone 10 mg tablet 20 mg (2 x 10 mg) PO Q6H PRN moderate-severe pain #30 tabs 03/01/25
sennosides 8.6 mg tablet (senna) 17.2 mg (2 x 8.6 mg) PO BID PRN Constipation #30 tabs 03/01/25
Pending Results: No
[2025-03-01 11:00] VITALS: BP 122/75
[2025-03-01 11:49] VITALS: BP 122/75; PULSE 74; O2SAT 97
[2025-03-01] MEDS: FLUZONE (6 mos+) 2025-2026 FORMULA 0.5 ML IM (11:56)
[2025-03-01] MEDS: NON-FORMULARY ITEM 2.456 MG SC (11:59)
[2025-03-01 12:06] VITALS: BP 122/75; PULSE 74; O2SAT 94
[2025-03-01 14:45] VITALS: BP 130/72
--- NOTE | 2025-03-01 15:19 | W.PN.UPDATE ---
Update Note
Progress Note Update
Patient seen and examined. POD #[address] Root. Distal third of Primaseal dressing with bloody drainage. Dressing removed to reveal a well-approximated surgical incision with skin clips intact. Scant bloody drainage from distal aspect of the
incision with knee flexion. Incision meticulously sterilized with Betadine swabs and additional skin clips placed. Some blistering noted about the distal aspect, therefore opted to proceed with multiple ABDs and Francisco J wrap for dressing. He will be
seen as an outpatient later this week for wound check. Continue with Eliquis. Ice therapy and elevation for edema control. All questions were answered.
--- NOTE | 2025-03-01 15:22 | PTCARENOTE ---
Ortho PA here to apply jeff to incision and redress incision.Pt advised to keep an eye on drainage and contact ortho office on Friday if incision is still draining. Pt discharged with dressing change supplies.
== END 2025-03-01 15:20 | disposition home or self-care (01) | DRG 470 ==
LOC: 2 SOUTH 07:25
PROVIDERS: ADMITTING PHYSICIAN Specialist; FAMILY PHYSICIAN Family Medicine
PROC: 0SRC0J9 Replacement of Right Knee Joint with Synthetic Substitute, Cemented, Open Approach (ICD-10-PCS; 2025-02-28)
PROC: 3E02340 Introduction of Influenza Vaccine into Muscle, Percutaneous Approach (ICD-10-PCS; 2025-03-01)
DX: M17.11 Unilateral primary osteoarthritis, right knee (principal); Z68.41 Body mass index [BMI] 40.0-44.9, adult; B02.29 Other postherpetic nervous system involvement; I10 Essential (primary) hypertension; J44.9 Chronic obstructive pulmonary disease, unspecified; E66.01 Morbid (severe) obesity due to excess calories; E78.5 Hyperlipidemia, unspecified; R00.2 Palpitations; I87.2 Venous insufficiency (chronic) (peripheral); G47.33 Obstructive sleep apnea (adult) (pediatric); K43.9 Ventral hernia without obstruction or gangrene; K59.09 Other constipation; E03.9 Hypothyroidism, unspecified; F12.20 Cannabis dependence, uncomplicated; F32.A Depression, unspecified; F41.9 Anxiety disorder, unspecified; F43.10 Post-traumatic stress disorder, unspecified; R73.03 Prediabetes; K29.50 Unspecified chronic gastritis without bleeding; Z96.652 Presence of left artificial knee joint; Z23 Encounter for immunization; Z79.899 Other long term (current) drug therapy; Z79.891 Long term (current) use of opiate analgesic; Z87.891 Personal history of nicotine dependence; Z79.01 Long term (current) use of anticoagulants; Z86.73 Personal history of transient ischemic attack (TIA), and cerebral infarction without residual deficits
CPT/HCPCS: 36415; 73560; 80053; 83036; 85027; 87070; 90656; 97110; 97116; 97163; 97167; 97530; 97535; C1713; C1776; G0008

== ENCOUNTER → 2025-03-17 17:00 | Outpatient (REF) | payer MEDICARE, OTHER, SELFPAY | LOC: RAD 17:00 | PROVIDERS: ATTENDING PHYSICIAN Physician Assistant Surgical; FAMILY PHYSICIAN Family Medicine | DX: Z96.651 Presence of right artificial knee joint (principal); M79.89 Other specified soft tissue disorders; M79.651 Pain in right thigh | CPT/HCPCS: 93971 ==